=== PATIENT | male | born 1955 ===

== ENCOUNTER 2020-01-21 16:57 | Outpatient (REF) | payer OTHER, SELFPAY | END 2020-01-21 16:58 | disposition home or self-care (01) | LOC: HO.LAB 16:57 | PROVIDERS: Visit Provider Internal Medicine | DX: Z20.828 Contact with and (suspected) exposure to other viral communicable diseases (principal) | CPT/HCPCS: 87635 ==

== ENCOUNTER → 2020-02-06 08:50 | Outpatient (BNVA) | payer OTHER, SELFPAY | PROVIDERS: PCP Internal Medicine; Referring Provider Internal Medicine; Visit Provider Student in an Organized Health Care Education/Training Program | DX: G89.29 Other chronic pain (principal); M54.5 Low back pain | CPT/HCPCS: 99212 ==

== ENCOUNTER 2021-01-08 08:21 | Outpatient (REF) | payer OTHER, SELFPAY ==
[2021-01-08 09:24] LABS: Alanine Aminotransferase 34 U/L (0-40); Albumin Level 4.2 g/dL (3.5-5.0); Alkaline Phosphatase 52 U/L (39-117); Anion Gap 11 (12-20); Aspartate Amino Transferase 25 U/L (5-37); Bilirubin Total 0.9 mg/dL (0.0-1.0); Blood Urea Nitrogen 16 mg/dL (9-16); Calcium 9.3 mg/dL (8.4-10.2); Carbon Dioxide 28 mmol/L (22-29); Chloride 104 mmol/L (96-108); Estimated Glomerular Filt Rate > 60; Glucose Random 188 mg/dL (60-115); Potassium 4.3 mmol/L (3.3-5.1); Sodium 139 mmol/L (135-145); Total Protein 6.7 g/dL (6.5-8.0)
== END 2021-01-08 08:22 | disposition home or self-care (01) ==
LOC: HO.LAB 08:21
PROVIDERS: PCP Student in an Organized Health Care Education/Training Program; Visit Provider Nurse Practitioner Family
DX: G89.29 Other chronic pain (principal); M54.50 Low back pain, unspecified
CPT/HCPCS: 36415; 80053

== ENCOUNTER → 2021-04-27 11:17 | Outpatient (BNVA) | payer OTHER, SELFPAY | PROVIDERS: PCP Internal Medicine; Visit Provider Nurse Practitioner Family | DX: M54.50 Low back pain, unspecified (principal); G89.29 Other chronic pain | CPT/HCPCS: 99212 ==

== ENCOUNTER 2021-05-10 11:21 | Outpatient (REF) | payer OTHER, SELFPAY ==
--- NOTE | ~2021-05-10 | XR_ITS ---
EXAMINATION: XR LUMBOSACRAL SPINE CLINICAL INFORMATION: Chronic lower back pain. COMPARISON: None TECHNIQUE: Three views of the lumbosacral spine. FINDINGS: Mild degenerative changes are present with predominately endplate disease with some mild narrowing at L4-L5 as well as L5-S1. When comparison is made to the 06/08/2016 study, there is some mild progression at L4-L5. XR/XR lumbar spine 2-3V IMPRESSION: Mild degenerative changes as described above.
== END 2021-05-10 11:22 | disposition home or self-care (01) ==
LOC: HO.XRAY 11:21
PROVIDERS: PCP Internal Medicine; Visit Provider Nurse Practitioner Family
DX: G89.29 Other chronic pain (principal); M54.50 Low back pain, unspecified
CPT/HCPCS: 72100

== ENCOUNTER 2021-07-16 12:44 | Emergency (ER) | payer OTHER, SELFPAY ==
--- NOTE | ~2021-07-16 | XR_ITS ---
EXAMINATION: XR FEMUR, RIGHT CLINICAL INFORMATION: Pain post fall COMPARISON: Bilateral hip x-ray from the same day and right hip x-ray July 2016 TECHNIQUE: AP and lateral views of the right femur were obtained. FINDINGS: Bone alignment is normal. No fracture or dislocation is seen. There is mild arthritis at the right hip joint with superior lateral acetabular osteophyte. The joint spaces otherwise normal. The knee joint is normal. Soft tissues are normal. XR/XR femur RT 2V IMPRESSION: No fracture or dislocation.
--- NOTE | ~2021-07-16 | XR_ITS ---
EXAMINATION: LUMBAR SPINE AND SACRUM AND COCCYX X-RAYS CLINICAL INFORMATION: Pain post fall COMPARISON: Previous x-ray of the lumbar spine April 2021 TECHNIQUE: 3 views of the lumbar spine and 3 views of the sacrum and coccyx FINDINGS: Lumbar spine: Bone alignment is normal. No fracture or dislocation is seen. There is degenerative spondylosis at L3-L4 to L5-S1. There is degenerative disc disease at L5-S1. There is lower lumbar spine facet arthritis. The sacrum and coccyx are normal. XR/XR lumbar spine 2-3V IMPRESSION: Degenerative changes. No fracture or dislocation seen.
--- NOTE | ~2021-07-16 | XR_ITS ---
EXAMINATION: LUMBAR SPINE AND SACRUM AND COCCYX X-RAYS CLINICAL INFORMATION: Pain post fall COMPARISON: Previous x-ray of the lumbar spine April 2021 TECHNIQUE: 3 views of the lumbar spine and 3 views of the sacrum and coccyx FINDINGS: Lumbar spine: Bone alignment is normal. No fracture or dislocation is seen. There is degenerative spondylosis at L3-L4 to L5-S1. There is degenerative disc disease at L5-S1. There is lower lumbar spine facet arthritis. The sacrum and coccyx are normal. XR/XR sacrum coccyx min 2V IMPRESSION: Degenerative changes. No fracture or dislocation seen.
--- NOTE | ~2021-07-16 | XR_ITS ---
EXAMINATION: XR BILATERAL HIPS WITH AP PELVIS CLINICAL INFORMATION: Fall COMPARISON: Previous left hip x-ray July 2016 TECHNIQUE: AP view of the pelvis and 2 views of each hip were obtained. FINDINGS: Bone alignment is normal. No fracture or dislocation is seen. There are small superior lateral acetabular osteophytes seen at both hip joints. The hip joints are otherwise normal. Bones of the pelvis are normal. There is faint soft tissue calcification adjacent to the greater trochanter. XR/XR hip BI w PEL1V IMPRESSION: No fracture or dislocation.
[2021-07-16 12:53] VITALS: BP 114/64; PULSE 61; RESP 17; TEMP 36.3; O2SAT 97; BMI 32.6
--- NOTE | 2021-07-16 13:58 | ED_ITS ---
HPI - Extremity Injury (Lower) General Chief Complaint: Extremity Injury, Lower Stated Complaint: Fall t-2 days/hip pain Time Seen by Provider: 07/16/21 13:41 Source: patient Mode of arrival: ambulatory History of Present Illness HPI Narrative: 65-year-old male with a past medical history of hypertension, osteoarthritis, presenting to the ED complaining of right hip/groin, right thigh, and low back pain s/p mechanical trip and fall 2 days ago while going down the stairs at home. Denies symptoms prior to fall. Denies head trauma or LOC, has been ambulatory with pain. Denies numbness, tingling, weakness, urinary incontinence/retention. Admits to taking tramadol without relief MD complaint: hip injury, thigh injury and leg injury Onset (ago): day(s) Related Data Home Medications Medication Instructions Recorded Confirmed docusate sodium 100 mg capsule 100 mg PO DAILY 02/06/20 (Colace) terazosin 2 mg capsule 2 mg PO BEDTIME 02/06/20 Previous Rx's Medication Instructions Recorded montelukast 10 mg tablet 10 mg PO DAILY 90 Days #90 tab 10/26/20 baclofen 10 mg tablet 10 mg PO Q8H #270 tab 01/20/21 tramadol 50 mg tablet 50 mg PO Q8H #90 tab 05/21/21 hydrocodone 5 mg-acetaminophen 325 1 tab PO Q8H PRN 3 Days #5 tab 07/16/21 mg tablet lidocaine 5 % topical patch 1 patch TOPICAL DAILY PRN #30 ea 07/16/21 (Lidoderm) MDD remove after 12 hours naproxen 500 mg tablet 500 mg PO BID PRN 10 Days #20 tab 07/16/21 Allergies Allergy/AdvReac Type Severity Reaction Status Date / Time No Known Allergies Allergy Verified 04/27/21 11:33 [No Known Allergies*] Review of Systems Review of Systems: Constitutional: No Fever, No Chills ENT/Mouth: No Ear Pain, No Nasal Congestion, No sore throat, No Rhinorrhea, No Swallowing Difficulty Cardiovascular: No Chest Pain, No SOB Respiratory: No Cough, No Sputum, No Wheezing Gastrointestinal: No Nausea, No Vomiting, No Diarrhea, No Constipation, No Abdominal pain Genitourinary: No Dysuria, No Urinary Frequency, No Hematuria, No Urinary Incontinence/retention, No Urgency, No Flank Pain Musculoskeletal: + joint pain, No Myalgias, No Joint Swelling Skin: No Skin Lesions, No rash Neuro: No Weakness, No Numbness, No Paresthesias Yes all other systems are reviewed and are negative Neurologic: Denies Sensory deficit (Neuro) [facility] Past Medical History Attestation statement: The following information was validated with the patient. Medical History HTN (hypertension) Low back pain Osteoarthritis Surgical History Hx of shoulder surgery Family History Family History Father Diabetes Mother Cancer Social History Social History Household Members: Spouse Alcohol intake: current Patient Tobacco Use Status: Former Tobacco user Advance Directives: No Advance Directives Information Provided: Yes Sexual orientation: Straight/Heterosexual Gender identity: Male Physical Exam Vital Signs: Vital Signs: Last Vital Signs Temp 97.4 F 07/16/21 12:53 Pulse 61 07/16/21 12:53 Resp 17 07/16/21 12:53 BP 114/64 07/16/21 12:53 Pulse Ox 97 07/16/21 12:53 BMI result Body Mass Index 32.6 Const: General: cooperative and no acute distress Orientation/consciousness: patient oriented x3 Limitations: no limitations HEENT: Head: Yes normal to inspection and Yes atraumatic Ears: hearing grossly normal bilaterally General nose exam: Normal external nose present Face and sinus: Yes normal facial exam Eyes: General: appearance normal, both eyes and all related structures EOM: EOMs intact bilaterally Neck: Other: No midline cervical spinous tenderness Neck: Yes normal visual inspection and Yes no meningeal signs Chest: Chest palpation & inspection: no crepitus and no tenderness Resp: Effort & Inspection: normal respiratory effort and no respiratory distress Cardio: Rate: regular rate Heart sounds: S1 normal heart sound present and S2 normal heart sound present Peripheral pulses: radial pulses present and dorsalis pedis present GI: Inspection: Yes normal to inspection Palpation (GI): Soft to palpation, nontender, no guarding and not rigid Back/Spine/Pelvis: Other: No midline thoracic/lumbar spinous tenderness/step-off or deformity. + right- sided lumbar paraspinal/buttock tenderness Thoracic/Lumbar Spine: thoracic and lumbar spine normal to inspection Skin: Rashes: no rashes Wounds: no wounds Neuro: Other: Ambulating with slow steady gait with cane. No saddle anesthesia. Strength intact throughout General: patient oriented x3, tone normal, moves all extremities and no meningeal signs Motor exam (neuro): 5/5 motor strength present throughout Sensory Exam: No Sensory deficit (Neuro) Extrem: Other: No appreciable right lower extremity deformity, no erythema/ecchymosis. R hip with mild tenderness greater to groin, + right thigh tenderness, compartments soft. Knee/foot nontender. Pain elicited with external rotation of hip. Neurovascular intact distally General: Yes normal to inspection Course Course Course Narrative: X-rays without acute findings. Results discussed with patient including needed follow-up with PCP and worrisome signs and symptoms/strict return precautions, he verbalized understanding and feel safe for discharge home at this time MDM - Extremity Injury (Lower) MDM Narrative Medical decision making narrative: 65-year-old male with a past medical history of hypertension, osteoarthritis, presenting to the ED complaining of right hip/groin, right thigh, and low back pain s/p mechanical trip and fall 2 days ago while going down the stairs at home. On exam vital signs stable, NAD/nontoxic appearing, physical exam as above. Concern for fracture vs MSK pain/strain vs dislocation. Low concern for cauda equina/cord compression Differential Diagnosis Differential diagnosis: Likely fracture of femur and fracture of hip Medical Records Attestation: I reviewed the patient's medical records. Lab Data Attestation: I reviewed the patient's lab results. Discharge Plan Discharge Clinical Impression: Low back pain, Contusion Patient Disposition: Home, Self-Care Instructions: Acute Low Back Pain (ED), Bone Bruise (ED) Additional Instructions: Your x-rays do not show any fractures or dislocations, just age related changes. Continue taking her prescribed baclofen which is a muscle relaxer, take at night as it makes you drowsy, do not drive, drink alcohol, or operate machinery while taking it Naproxen as an anti-inflammatory / pain medication, take with food Lidoderm patches are numbing patches, apply to painful area [place] is an opiate pain medication, take only when pain is severe for the next 3 days. Do not take both [place] and tramadol as they are both opiates. Be aware [place] has Tylenol mixed in do not exceed 4 g in 1 day In addition take Tylenol at home If symptoms persist or worsen, pain becomes unbearable, you developed urinary retention or incontinence, or weakness return to the ED Prescriptions: New naproxen 500 mg tablet 500 mg PO BID PRN (Reason: pain) 10 Days Qty: 20 0RF lidocaine [Lidoderm] 5 % adhesive patch,medicated 1 patch topical DAILY MDD remove after 12 hours PRN (Reason: pain) Qty: 30 0RF Rx Instructions: leave on most painful area for up to 12 hrs hydrocodone-acetaminophen 5-325 mg tablet 1 tab PO Q8H PRN (Reason: pain, severe) 3 Days Qty: 5 0RF No Action montelukast 10 mg tablet 10 mg PO DAILY 90 Days Qty: 90 3RF baclofen 10 mg tablet 10 mg PO Q8H Qty: 270 1RF tramadol 50 mg tablet 50 mg PO Q8H Qty: 90 3RF terazosin 2 mg capsule 2 mg PO BEDTIME 0RF docusate sodium [Colace] 100 mg capsule 100 mg PO DAILY 0RF Referrals: Magali Kwok MD [Primary Care Provider] - 2 days Interventions: ED Discharge Assessment Last Done: 07/16/21 15:04 Discharge Date/Time: 07/16/21 15:05
[2021-07-16] MEDS: Acetaminophen 325 MG TABLET 650 MG PO (14:20)
[2021-07-16] MEDS: Cyclobenzaprine HCl 10 MG TABLET PO (14:20)
--- NOTE | 2021-07-16 14:39 | PC.NURSE ---
PT AMBULATED WITH CANE TO BATHROOM AND BACK TO BED SLOWLY, STEADY GAIT.
== END 2021-07-16 15:05 | disposition home or self-care (01) ==
PROVIDERS: Emergency Provider Emergency Medicine Emergency Medical Services; PCP Internal Medicine
DX: S30.1XXA Contusion of abdominal wall, initial encounter (principal); M54.50 Low back pain, unspecified; M25.551 Pain in right hip; M25.552 Pain in left hip; W10.9XXA Fall (on) (from) unspecified stairs and steps, initial encounter; Y93.9 Activity, unspecified; Y92.9 Unspecified place or not applicable; Y99.9 Unspecified external cause status; Z87.891 Personal history of nicotine dependence; Z79.899 Other long term (current) drug therapy
CPT/HCPCS: 72100; 72220; 73521; 73552; 99283

== ENCOUNTER 2021-07-17 00:37 | Emergency (ER) | payer OTHER, SELFPAY ==
--- NOTE | ~2021-07-17 | CT_ITS ---
EXAMINATION: CT PELVIS WITHOUT CONTRAST CLINICAL INFORMATION: Lumbar pain. Pelvic pain. Fall. COMPARISON: 07/16/2021 TECHNIQUE: Helical scanning was performed with submillimeter collimation through the pelvis. Sagittal and coronal multiplanar 2-D reconstructions were obtained. This CT examination was performed using dose optimization techniques as appropriate, variously including the following: *Automated exposure control *Adjustment of mA and/or kV according to patient size (this includes techniques or standardized protocols for targeted exams where dose is matched to indication/reason for exam; i.e. extremities or head) *Use of iterative reconstruction technique DLP: 506 mGy-cm FINDINGS: PELVIS: The intrapelvic structures show no acute abnormality. No bowel obstruction. Normal appendix. Normally distended bladder. The prostate and seminal vesicles are unremarkable. No lymphadenopathy. No abdominal wall hernia. OSSEOUS STRUCTURES: No acute fractures. The femoral heads are well-seated within their acetabula. Mild degenerative change of both hips with osteophyte formation. Intact sacrum. Symmetric sacroiliac joints. Degenerative changes noted at the lower lumbar spine. CT/CT pelvis wo con IMPRESSION: No fracture or malalignment. Degenerative changes.
[2021-07-17 01:03] VITALS: BP 120/47; PULSE 60; RESP 20; TEMP 36.5; O2SAT 97; BMI 32.6
--- NOTE | 2021-07-17 01:41 | ED_ITS ---
HPI - Back Pain/Injury General Chief Complaint: Back Pain/Injury Stated Complaint: hip/lower back pain, was here 07/16 Time Seen by Provider: 07/17/21 01:21 Source: patient Mode of arrival: ambulatory Limitations: no limitations History of Present Illness HPI Narrative: Patient comes to the emergency room complaining of lumbar pain and pelvic pain after a fall. Patient was seen here yesterday, x-rays were negative. Patient states that the pain is much worse. Patient is barely able to stand up and walk due to the pain. Patient denies any urinary/fecal incontinence or retention. Patient states that both of his buttocks hurt as well. Patient denies any other injuries. States that he was walking down the stairs 2 days ago and he fell , landing on his buttocks Related Data Home Medications Medication Instructions Recorded Confirmed docusate sodium 100 mg capsule 100 mg PO DAILY 02/06/20 (Colace) terazosin 2 mg capsule 2 mg PO BEDTIME 02/06/20 Previous Rx's Medication Instructions Recorded montelukast 10 mg tablet 10 mg PO DAILY 90 Days #90 tab 10/26/20 baclofen 10 mg tablet 10 mg PO Q8H #270 tab 01/20/21 tramadol 50 mg tablet 50 mg PO Q8H #90 tab 05/21/21 hydrocodone 5 mg-acetaminophen 325 1 tab PO Q8H PRN 3 Days #5 tab 07/16/21 mg tablet lidocaine 5 % topical patch 1 patch TOPICAL DAILY PRN #30 ea 07/16/21 (Lidoderm) MDD remove after 12 hours naproxen 500 mg tablet 500 mg PO BID PRN 10 Days #20 tab 07/16/21 oxycodone 5 mg tablet 5 mg PO BID PRN #7 tab 07/17/21 Allergies Allergy/AdvReac Type Severity Reaction Status Date / Time No Known Allergies Allergy Verified 07/17/21 01:07 [No Known Allergies*] Review of Systems Review of Systems: Constitutional : No Weight loss, No Fever, No Chills, No Night Sweats, No Fatigue, No Malaise ENT/Mouth : No Hearing loss, No Ear Pain, No Nasal Congestion, No Sinus Pain, No Hoarseness, No sore throat, No Rhinorrhea, No Swallowing Difficulty Eyes: No Eye Pain, No Swelling, No Redness, No Foreign Body, No Discharge, No Vision Changes Cardiovascular : No Chest Pain, No SOB, No Dyspnea on Exertion, No Orthopnea, No Edema, No Palpitations Respiratory : No Cough, No Sputum, No Wheezing, No Smoke Exposure, No Dyspnea Gastrointestinal : No Nausea, No Vomiting, No Diarrhea, No Constipation, No abdominal Pain, No Hematochezia, No Melena Genitourinary : no irregular bleeding, No Dysuria, No Urinary Frequency, No Hematuria, No Urinary Incontinence, No Urgency, No Flank Pain, No Urinary Flow Changes, No Hesitancy Musculoskeletal : Complaining of pelvic, buttocks pain and posterior upper thi ghs pain bilaterally, complaining of lumbar pain as well. Skin : No Skin Lesions, No rash Neuro : No Weakness, No Numbness, No Paresthesias, No Loss of Consciousness, No Dizziness, No Headache Psych : No Anxiety/Panic, No Depression, No SI/HI/AH/VH, No Social Issues, Heme/Lymph: No Bruising, No Bleeding,No Lymphadenopathy Endocrine : No Polyuria, No Polydipsia, No Temperature Intolerance [facility] Past Medical History Medical History HTN (hypertension) Low back pain Osteoarthritis Surgical History Hx of shoulder surgery Family History Family History Father Diabetes Mother Cancer Social History Social History Household Members: Spouse Alcohol intake: current Patient Tobacco Use Status: Former Tobacco user Advance Directives: No Advance Directives Information Provided: Yes Sexual orientation: Straight/Heterosexual Gender identity: Male Physical Exam Vital Signs: Vital Signs: Last Vital Signs Temp 97.7 F 07/17/21 01:03 Pulse 60 07/17/21 01:03 Resp 20 07/17/21 01:03 BP 120/47 L 07/17/21 01:03 Pulse Ox 97 07/17/21 01:03 BMI result Body Mass Index 32.6 Const: Other: Appearance: Alert. Oriented X3. No acute distress. Eyes: Pupils equal, round and reactive to light. ENT: Pharynx normal. Neck: Normal inspection. Neck supple. No lymph nodes noted. No crepitus CVS: Normal heart rate and rhythm. Pulses normal. Normal S1 and S2 Respiratory: No respiratory distress. Breath sounds normal. No Wheezing. No rales Abdomen: Soft and nontender. No rigidity. No distention. Back: Pain to palpation in lumbar area, mild pain to palpation over the buttocks. Patient is uncomfortable sitting in the chair, also very uncomfortable trying to stand up due to the pain. Skin: Skin warm and dry. Normal skin color. Normal skin turgor. Extremities: No lower extremity edema. No Lacerations. No Rash Neuro: Oriented X 3. No motor deficit. No sensory deficit. Moving all extremities. No slurred speech. CN 2 through 12 grossly intact Psych: calm, cooperative, normal affect Course Course Course Narrative: Patient already had x-rays done, negative, we will go ahead and get a CT scan to rule out fractures. Cauda equina syndrome not suspected at this time. Patient received 1 dose of IM morphine 4 mg, patient feeling much better. CT scan shows no acute findings. Patient will follow up with his primary care physician. MDM - Back Pain/Injury Imaging Data Pelvis CT scan: Radiologist's impression: FINDINGS: PELVIS: The intrapelvic structures show no acute abnormality. No bowel obstruction. Normal appendix. Normally distended bladder. The prostate and seminal vesicles are unremarkable. No lymphadenopathy. No abdominal wall hernia.? OSSEOUS STRUCTURES: No acute fractures. The femoral heads are well-seated within their acetabula. Mild degenerative change of both hips with osteophyte formation. Intact sacrum. Symmetric sacroiliac joints. Degenerative changes noted at the lower lumbar spine.? CT/CT pelvis wo con IMPRESSION: No fracture or malalignment. Degenerative changes.? Discharge Plan Discharge Clinical Impression: Low back pain Patient Disposition: Home, Self-Care Instructions: Acute Low Back Pain (ED) Additional Instructions: Please follow-up with your primary care physician tomorrow. If you have any worsening or new symptoms, please return to the emergency room or call 911 Prescriptions: New oxycodone 5 mg tablet 5 mg PO BID PRN (Reason: pain) Qty: 7 0RF No Action montelukast 10 mg tablet 10 mg PO DAILY 90 Days Qty: 90 3RF baclofen 10 mg tablet 10 mg PO Q8H Qty: 270 1RF tramadol 50 mg tablet 50 mg PO Q8H Qty: 90 3RF naproxen 500 mg tablet 500 mg PO BID PRN (Reason: pain) 10 Days Qty: 20 0RF lidocaine [Lidoderm] 5 % adhesive patch,medicated 1 patch topical DAILY MDD remove after 12 hours PRN (Reason: pain) Qty: 30 0RF Rx Instructions: leave on most painful area for up to 12 hrs hydrocodone-acetaminophen 5-325 mg tablet 1 tab PO Q8H PRN (Reason: pain, severe) 3 Days Qty: 5 0RF terazosin 2 mg capsule 2 mg PO BEDTIME 0RF docusate sodium [Colace] 100 mg capsule 100 mg PO DAILY 0RF
[2021-07-17] MEDS: Morphine Sulfate 4 MG/ML CARTRIDGE IM (02:17)
[2021-07-17 03:03] VITALS: BP 106/53; PULSE 51; RESP 16; TEMP 36.9; O2SAT 97
== END 2021-07-17 03:20 | disposition home or self-care (01) ==
PROVIDERS: Emergency Provider Emergency Medicine
DX: M54.50 Low back pain, unspecified (principal); R10.2 Pelvic and perineal pain; Z87.891 Personal history of nicotine dependence
CPT/HCPCS: 72192; 96372; 99283; 99284; J2270

== ENCOUNTER → 2022-04-27 09:22 | Outpatient (BNVA) | payer OTHER, SELFPAY | PROVIDERS: PCP Family Medicine; Visit Provider Nurse Practitioner Family | DX: M47.816 Spondylosis without myelopathy or radiculopathy, lumbar region (principal) | CPT/HCPCS: 99212 ==

== ENCOUNTER 2022-05-13 08:52 | Outpatient (REF) | payer OTHER, SELFPAY ==
[2022-05-13 09:14] LABS: MANUAL DIFF FLAG NO
[2022-05-13 09:31] LABS: Basophils Percent Auto 0.6 % (0-2); Eosinophils Absolute Auto 0.1 X10*3/uL (0.0-0.4); Eosinophils Percent Auto 2.4 % (0-4); Hematocrit 44.5 % (42.0-52.0); Hemoglobin 15.3 g/dl (14.0-18.0); Imm Gran Abs Auto 0.02 X10*3/uL (0.00-0.03); Imm Gran Pct Auto 0.4 % (0.0-0.4); Lymphocytes Absolute Auto 1.2 X10*3/uL (1.2-4.9); Lymphocytes Percent Auto 23.5 % (20-40); Mean Corpuscular HGB Conc 34.4 g/dl (31.0-36.0); Mean Corpuscular Hemoglobin 30.1 pg (27.0-33.0); Mean Corpuscular Volume 87.6 fL (80.0-98.0); Mean Platelet Volume 8.8 fL (9.4-12.4); Monocytes Absolute Auto 0.7 X10*3/uL (0.1-1.2); Monocytes Percent Auto 13.8 % (2-11); Neutrophils Percent Auto 59.3 % (45-73); Platelet Count 191 X10*3/uL (160-400); Red Blood Count 5.08 X10*6/uL (4.60-5.80); Red Cell Distribution Width 12.3 % (11.0-16.0); White Blood Count 5.1 X10*3/uL (4.8-10.8)
[2022-05-13 09:47] LABS: Amphetamine Screen Urine Not Detected (Not Detect); Barbiturates, Urine Not Detected (Not Detect); Benzodiazepines Screen Urine Not Detected (Not Detect); Cannabinoid Screen Urine Not Detected (Not Detect); Cocaine Screen Urine Not Detected (Not Detect); Fentanyl, urine Not Detected (Not Detect); Opiate Screen Urine Not Detected (Not Detect); Phencyclidine Screen Urine Not Detected (Not Detect)
[2022-05-13 10:17] LABS: Creatinine Urine 206.22 mg/dL; Microalbum/Creatinine Ratio Ur 7.7 ug/mg cr
[2022-05-13 10:19] LABS: Alanine Aminotransferase 33 U/L (0-40); Aspartate Amino Transferase 27 U/L (5-37)
[2022-05-13 10:23] LABS: Erythrocyte Sedimentation Rate 7 MM/HR (0-15)
[2022-05-13 10:31] LABS: Alanine Aminotransferase 37 U/L (0-40); Albumin Level 4.1 g/dL (3.5-5.0); Alkaline Phosphatase 54 U/L (39-117); Anion Gap 11 (12-20); Aspartate Amino Transferase 26 U/L (5-37); Bilirubin Total 1.4 mg/dL (0.0-1.0); Blood Urea Nitrogen 21 mg/dL (9-16); C Reactive Protein 0.39 mg/dL (< or = 0.50); Calcium 9.1 mg/dL (8.4-10.2); Carbon Dioxide 28 mmol/L (22-29); Chloride 106 mmol/L (96-108); Cholesterol 182 mg/dL; Estimated Glomerular Filt Rate > 60; Glucose Fasting 117 mg/dL (60-99); HDL Cholesterol 29 mg/dL; LDL Cholesterol Calculated 121 mg/dl; Potassium 4.4 mmol/L (3.3-5.1); Sodium 141 mmol/L (135-145); Total Protein 6.5 g/dL (6.5-8.0); Triglycerides 161 mg/dL
[2022-05-13 10:52] LABS: Prostate Specific Antigen Scr 9.46 ng/mL (<0.05-4.0); TSH reflex Free T4 1.56 uIU/mL (0.32-4.0)
[2022-05-13 13:40] LABS: Appearance Urine Clear; Color Urine Yellow; Glucose Urine UA Negative (Negative); Leukocyte Esterase Urine Trace (Negative); Nitrite Urine Negative (Negative); Specific Gravity - Urine 1.025 (1.005-1.025); UMIC TRIGGER UA YES; Urine Blood Negative (Negative); Urine Ketones Negative (Negative); Urine Protein Negative (Neg-Trace)
[2022-05-13 13:52] LABS: Bacteria Urine None Seen (None Seen); Hyaline Casts Urine 0-2 /LPF (0-2); RBC Urine 0-2 /HPF (0-2); Squamous Epithelial Cell Urine 0-2 /HPF (0-2); WBC Urine 0-5 /HPF (0-5)
== END 2022-05-13 08:53 | disposition home or self-care (01) ==
LOC: HO.LAB 08:52
PROVIDERS: Absent Provider Nurse Practitioner Family; PCP Family Medicine; Visit Provider Family Medicine
DX: Z00.00 Encounter for general adult medical examination without abnormal findings (principal); Z12.5 Encounter for screening for malignant neoplasm of prostate; M25.50 Pain in unspecified joint; I10 Essential (primary) hypertension; Z79.899 Other long term (current) drug therapy
CPT/HCPCS: 36415; 80053; 80061; 80307; 80373; 81001; 81003; 82043; 84153; 84443; 84450; 84460; 85025; 85652; 86140

== ENCOUNTER → 2022-06-01 09:47 | Outpatient (BNVA) | payer OTHER, SELFPAY | PROVIDERS: PCP Family Medicine; Visit Provider Physician Assistant | DX: Z01.818 Encounter for other preprocedural examination (principal); Z80.0 Family history of malignant neoplasm of digestive organs | CPT/HCPCS: 99202 ==

== ENCOUNTER → 2022-06-06 10:47 | Outpatient (BNVA) | payer OTHER, SELFPAY | PROVIDERS: PCP Family Medicine; Visit Provider Urology | DX: N40.1 Benign prostatic hyperplasia with lower urinary tract symptoms (principal); N13.8 Other obstructive and reflux uropathy; R97.20 Elevated prostate specific antigen [PSA] | CPT/HCPCS: 51798; 99202 ==

== ENCOUNTER 2022-08-25 07:24 | Outpatient (REF) | payer OTHER, SELFPAY ==
[2022-08-25 07:50] VITALS: BP 132/61; PULSE 50; RESP 16; TEMP 36.3; O2SAT 96
[2022-08-25 07:51] VITALS: BMI 33.2
[2022-08-25 08:32] VITALS: BP 157/86; PULSE 50; RESP 16; O2SAT 98
--- NOTE | 2022-08-25 09:06 | W.PM.OPN ---
Operative Note Operative Note Date of Service: 08/25/22 Narrative: PreOperative Diagnosis:? ? Elevated PSA Post Operative Diagnosis:??Elevated PSA Procedure:?1. Transrectal ultrasound guided biopsy of the prostate 12 core 2. Transrectal ultrasound measurement of prostate 3. Transrectal ultrasound guided pudendal nerve block Surgeon:?Dr Veronica Alfredo Anesthesia:? Local Indications for procedure: Elevated PSA Procedure: Preoperative antibiotics confirmed. After informed consent was verified the patient was placed on the procedure table in left lateral position. Patient identity confirmed. Safety pause time-out performed. Digital rectal exam performed to dilate rectal sphincter, iodine mixed with lubricant jelly 30 cc placed per rectum. Ultrasound probe was placed per rectum. The prostate was visualized. The prostate was measured height 4.41 cm, width 4.90 cm, length 5.78 cm with a volume of 65.4 mL. An ultrasound guided pudendal nerve block was performed using 10 cc of 1% lidocaine. A 12 core biopsy was performed from the left base, left mid, left apex and right base, mid, apex 2 biopsies from each section. The ultrasound probe was removed and digital palpation of the prostate for 1-2 minutes for hemostasis was performed. The patient tolerated the procedure well. Complications: None
== END 2022-08-25 07:25 | disposition home or self-care (01) ==
LOC: HO.MS 07:24
PROVIDERS: PCP Family Medicine; Visit Provider Urology
PROC: (CPT 55700; principal; 2022-08-25 08:00)
DX: C61 Malignant neoplasm of prostate (principal)
CPT/HCPCS: 55700; 76942; 88305

== ENCOUNTER → 2022-09-15 08:57 | Outpatient (BNVA) | payer OTHER, SELFPAY | PROVIDERS: PCP Family Medicine; Visit Provider Urology | DX: C61 Malignant neoplasm of prostate (principal) | CPT/HCPCS: 99212 ==

== ENCOUNTER 2022-12-12 13:54 | Outpatient (AMB) | payer OTHER, SELFPAY ==
--- NOTE | 2022-12-12 14:01 | MHC.OFFVIS ---
Intake Intake Visit Reasons: 3m/CT pet Intake Note: Patient presents today for a follow-up on CT PET Results: CT PET was denied. Meds- Tamsulosin Allergies to Antibiotic- No Known Allergies Blood Thinner- None Allergies No Known Allergies [No Known Allergies*] Allergy (Verified 12/12/22 14:17) HPI HPI Comments History of Present Illness Details Solomon is a 66-year-old male who presents today to the office for a follow-up. 12/12/2022? He is followed today for PET results. Certified Brazilian speaker was present during the visit. He was last seen by me on 09/15/2022 for adenocarcinoma of the prostate. CT Pet scan and polaris was ordered during that time. Insurance denied authorization for PET CT. I discussed results of Polaris molecular score is 4.0. Discussed options to include neoadjuvant hormonal therapy. He wants to consider radiation oncology, vs radical prostatectomy. I will start casodex 50 mg daily, and order firmagon. Referral to radiation oncology, Stacia Gomes and surgical urology oncology Dr. Sauceda. 12/12/2022: Evaluation today?UA? leukocytes: negative; blood: negative. Review of charts: Last visit: 09/15/22--? Certified painter apprentice was present during the visit.? The patient was evaluated initially on 06/06/22 for elevated PSA.? PSA on 05/13/2022 was 9.46 ng/mL. He is S/P prostate biopsy on 08/25/22.? I reviewed pathology results with him? I discussed that Bryson score notes that the biopsy samples were in the intermittent range, I discussed sending the biopsy for Gene analysis, Prol[facility] lab and we will refer him to radiation oncology for further discussion on treatment options.?? I did discuss that treatmenincludes active surveillance which we generally recommend for low-grade cancer and surgical removal was also discussed.? Prostate biopsy results reviewed?08/25/22-- significant for prostatic adenocarcinoma on the left base medial apex of highest Bryson score 3+4=7. Prostate volume was estimated to be 65.4 mL.? Evaluation today-- Blood:? 80 Arturo/uL, leukocytes: negative. 12/12/2022: Plan: Neoadjuvant hormonal therapy, will refer to the radiation oncologist, and surgical consultation for radical prostatectomy. bone scan. [facility] Medical History Lumbar spondylosis Low back pain Osteoarthritis HTN (hypertension) Surgical History H/O prostate biopsy Hx of shoulder surgery Family History Father Diabetes Mother Cancer Social History Household Members: Spouse Housing: House Alcohol intake: current Patient Tobacco Use Status: Former Tobacco user e-Cigarette/Vaping Use: Never Used Second Hand Smoke Exposure: No Current occupational status: retired Sexual orientation: Straight/Heterosexual Gender identity: Male Cognitive needs: No Hearing needs: No Vision needs: No Review of Systems Const Reports no additional complaints Eyes Reports no additional complaints ENT Denies neck pain Card Denies leg edema Resp Denies cough GI Denies constipation Musc Reports no additional complaints and Denies neck pain Skin/Breast Denies rash and Denies unusual bruising Neuro Reports no additional complaints Psych Reports no additional complaints Endo Reports no additional complaints Omid/Lymph Reports no additional complaints Aller/Immun Reports no additional complaints Results AMB Urinalysis, Automated UA Leukoctes 0 Brian/uL Last Edit by KATE Conrad on 12/12/22 14:21 UA Nitrite Negative Last Edit by KATE Conrad on 12/12/22 14:21 UA Urobilinogen 0 mg/dL Last Edit by KATE Conrad on 12/12/22 14:21 UA Protein 0 mg/dL Last Edit by KATE Conrad on 12/12/22 14:21 UA pH 6.0 Last Edit by KATE Conrad on 12/12/22 14:21 UA Blood 0 Arturo/uL Last Edit by KATE Conrad on 12/12/22 14:21 UA Specific [place] 1.020 Last Edit by KATE Conrad on 12/12/22 14:21 UA Ketone Negative Last Edit by KATE Conrad on 12/12/22 14:21 UA Bilirubin 0 mg/dL Last Edit by KATE Conrad on 12/12/22 14:21 UA Glucose 1000 mg/dL Last Edit by KATE Conrad on 12/12/22 14:21 3+ Bri Chu 12/12/22 14:21 Results Reviewed Results Reviewed: Laboratory Last Values Urine pH (Auto) 6.0 12/12/22 14:19 Specific [place] (Auto) 1.020 12/12/22 14:19 Urine Protein (Auto) 0 mg/dL 12/12/22 14:19 Glucose (UA)(Auto) 1000 mg/dL 12/12/22 14:19 Urine Ketones (Auto) Negative 12/12/22 14:19 Urine Blood (Auto) 0 Arturo/uL 12/12/22 14:19 Urine Nitrite (Auto) Negative 12/12/22 14:19 Urine Bilirubin (Auto) 0 mg/dL 12/12/22 14:19 Urine Urobilinogen (Auto) 0 mg/dL 12/12/22 14:19 Leukocyte Esterase (Auto) 0 Brian/uL 12/12/22 14:19 Assessment & Plan Assessment & Plan (1) Adenocarcinoma of prostate: Code(s): C61 - Malignant neoplasm of prostate Plan Neoadjuvant hormonal therapy, will refer to the radiation oncologist, and surgical consultation for radical prostatectomy. bone scan. Orders: Orders NM bone scan whole body 12/12/22 C61 - Malignant neoplasm of prostate AMB Urinalysis Automated 12/12/22 Z13.9 - Encounter for screening, unspecified Referrals Radiation Oncology Referral C61 - Malignant neoplasm of prostate Medications: New bicalutamide (Casodex) 50 mg PO DAILY 90 tabs 3RF Patient Instructions: The patient had an opportunity to ask questions regarding treatment plan. All questions were answered. Imaging, Laboratory studies and physical exam results were discussed and reviewed in detail. No major barriers to understanding were identified. The patient expressed understanding and agreement with the above treatment plan.? ? ? The patient is aware they should contact our office by phone for worsening of their current condition or the appearance of new symptoms. Compliance is encouraged with any medications and followup testing that is ordered.? ? ? It is a privilege to be allowed the opportunity to participate in the urologic care of your patient. If you have any questions or concerns regarding treatment for the above conditions please do not hesitate to contact me. The office telephone contact is [phone].? ? ? This note is constructed in part using voice recognition software. While every effort has been made to ensure accuracy tire mold engraver errors may have been included.? ? ? Yours sincerely,? ? ? Veronica Alfredo MD? ? Coding Level of Care Code Est Pt Level 4 (39485) Diagnoses Adenocarcinoma of prostate C61 Time Spent (min) 29
== END 2022-12-12 15:01 | disposition home or self-care (01) ==
PROVIDERS: PCP Family Medicine; Visit Provider Urology
DX: C61 Malignant neoplasm of prostate (principal)
CPT/HCPCS: 99214

== ENCOUNTER → 2022-12-12 13:54 | Outpatient (BNVA) | payer OTHER, SELFPAY | PROVIDERS: PCP Family Medicine; Visit Provider Urology | DX: C61 Malignant neoplasm of prostate (principal) | CPT/HCPCS: 81003; 99212 ==

== ENCOUNTER → 2022-12-29 10:41 | Outpatient (REF) | payer OTHER, SELFPAY | LOC: HO.NUCMED 10:41 | PROVIDERS: PCP Family Medicine; Visit Provider Urology | DX: C61 Malignant neoplasm of prostate (principal) | CPT/HCPCS: 78306; A9503 ==

== ENCOUNTER → 2023-01-09 08:11 | Outpatient (BNVA) | payer OTHER, SELFPAY | PROVIDERS: PCP Family Medicine; Visit Provider Urology ==

== ENCOUNTER 2023-01-16 08:50 | Outpatient (AMB) | payer OTHER, SELFPAY ==
--- NOTE | 2023-01-16 09:46 | MHC.OFFVIS ---
Intake Vital Signs 01/16/23 09:47 Height 5 ft 7 in Weight 199 lb 11.821 oz BMI 31.3 BP 112/70 Blood Pressure Location Rt brachial Position Sitting Pulse 48 L Pulse Source Pulse Oximeter Temp 97.3 F Temp Source Skin Pulse Oximetry (%) 96 Oxygen Delivery Method Room Air Intake Visit Reasons: osteoarthritis Intake Note: Patient presents today for OA follow up. Slitter Cut Off Operator Required: Yes Slitter Cut Off Operator Language: Web Site Designer Name: Dandy [id number] Information Interpreted: clinical only Accompanied by: Self / Same As Patient Allergies No Known Allergies [No Known Allergies*] Allergy (Verified 01/16/23 09:49) Medication List - Last Reconciled 01/16/23 by Rufino Connell MD baclofen 10 mg PO Q8H bicalutamide (Casodex) 50 mg PO DAILY bisacodyl (Dulcolax (bisacodyl)) 10 mg (2 x 5 mg) PO ONCE 1 day citalopram 20 mg PO DAILY 30 days montelukast 10 mg PO DAILY 90 days polyethylene glycol 3350 (Miralax) 238 grams PO ONCE 1 day tamsulosin 0.4 mg PO QPM tramadol 50 mg PO Q8H PRN HPI HPI Comments History of Present Illness Details The patient returns for evaluation of his osteoarthritis and treatment with tramadol. The visit is facilitated through the use of the iPad translating service. He had last seen Lisbeth about 8 months ago. He has osteoarthritis involving the hips, LS spine, and hands. Most of the problem seems to be in the LS spine. He finds the tramadol helpful and says it does not cause any sedation. This summer he was diagnosed with prostate cancer. The treatment plan has not been formulated yet. He has an upcoming visit with radiation oncology. ON LICENSE OF [facility] Medical History (Updated 01/16/23 @ 18:57 by Rufino Connell MD) Lumbar spondylosis Low back pain Osteoarthritis HTN (hypertension) Surgical History H/O prostate biopsy Hx of shoulder surgery Family History Father Diabetes Mother Cancer Social History Household Members: Spouse Housing: House Alcohol intake: current Patient Tobacco Use Status: Former Tobacco user e-Cigarette/Vaping Use: Never Used Second Hand Smoke Exposure: No Current occupational status: retired Sexual orientation: Straight/Heterosexual Gender identity: Male Cognitive needs: No Hearing needs: No Vision needs: No Review of Systems Const Details: Negative for appetite change, weight change, fever, chills, malaise and fatigue Eyes Details: Negative for vision change, dry eyes,headaches and dizziness Neuro Details: Negative for epilepsy, palsy, stroke, changes in speech, tingling and weakness Endo Details: Negative for polyuria and polydypsia Omid/Lymph Details: Negative for excessive bruising or bleeding. Physical Exam Vital Signs: Last Vital Signs Temp 97.3 F 01/16/23 09:47 Pulse 48 L 01/16/23 09:47 BP 112/70 01/16/23 09:47 Pulse Ox 96 01/16/23 09:47 Oxygen Delivery Method Room Air 01/16/23 09:47 BMI result Body Mass Index 31.3 APPEARANCE: Patient in no acute distress EXTREMITIES: No edema, no calf tenderness, normal peripheral pulses. JOINT EXAM: ??Cervical Spine:.? Full range of motion without pain; no tenderness. Thoracic Spine:? No scoliosis.? No tenderness on palpation. Lumbar Spine:? Alignment normal.? Limited flexion with pain over the lumbar spine. Tenderness to palpation of bilateral posterior buttocks. Occiput to wall test normal. Hands:?LEFT: Normal pain-free range of motion without tenderness, swelling, increased warmth or erythema. Able to make a full fist and has a good natural gas treating unit operator strength. Heberden's node digits IP joint and DIP 2, 3 and 4. Slight bony enlargement without tenderness at the thumb CMC joint. RIGHT: Normal pain-free range of motion without tenderness, swelling, increased warmth or erythema. Able to make a full fist and has a good natural gas treating unit operator strength. Slight bony enlargement without tenderness at the thumb CMC joint. Nontender Heberden's node digits IP joint and DIP 2, 3 and 4 Wrists:? Normal pain-free range of motion without tenderness, swelling, increased warmth or erythema. Elbows: Normal pain-free range of motion without tenderness, swelling, increased warmth or erythema. Shoulders:? Full range of motion without pain. No tenderness, weakness, swelling, increased warmth or erythema. Hips: LEFT: Full range of motion with mild lumbar and groin pain reported with the extremes of internal or external rotation. RIGHT: Full range of motion with mild lumbar pain and buttock pain with extremes of internal and external rotation. No groin pain with motion. Hip bursa:.? No tenderness. Knees:?? Normal pain-free range of motion with slight patellofemoral crepitus but no effusion, tenderness, swelling, increased warmth or erythema.? There is no effusion or crepitation Ankles:? Normal pain-free range of motion without tenderness, swelling, increased warmth or erythema. Feet: Normal pain-free range of motion with slight bony enlargement and mild tenderness at the 1st MTP bilaterally. No soft tissue swelling, increased warmth or erythema. Assessment & Plan Assessment & Plan (1) Osteoarthritis of hands, bilateral: Code(s): M19.041 - Primary osteoarthritis, right hand; M19.042 - Primary osteoarthritis, left hand (2) Medication monitoring encounter: Comment: Tramadol pain contract updated 02/24/2023 Code(s): Z51.81 - Encounter for therapeutic drug level monitoring (3) Lumbar spondylosis: Code(s): M47.816 - Spondylosis without myelopathy or radiculopathy, lumbar region Plan Osteoarthritis involving the lower back, hips, hands and feet. Most problematic for him has been the lower back pain which seems to be helped with the use of the tramadol. We did review that it was potentially sedating. I suggested maybe he could cut back a bit on the daytime use and substitute a Tylenol for one of the tramadol 50 mg. The Mass Pat was reviewed. He seems to be taking the medicine as directed. He will continue to get the prescription of 4 tablets per day. Follow-up in 6 months is recommended. Coding Level of Care Code Est Pt Level 3 (43768) Diagnoses Osteoarthritis of hands, bilateral M19.041; M19.042 Medication monitoring encounter Z51.81 Lumbar spondylosis M47.816
[2023-01-16 09:47] VITALS: BP 112/70; PULSE 48; TEMP 36.3; O2SAT 96; BMI 31.3
== END 2023-01-16 10:15 | disposition home or self-care (01) ==
PROVIDERS: PCP Family Medicine; Visit Provider Internal Medicine Rheumatology
DX: M19.041 Primary osteoarthritis, right hand (principal); M19.042 Primary osteoarthritis, left hand; Z51.81 Encounter for therapeutic drug level monitoring; M47.816 Spondylosis without myelopathy or radiculopathy, lumbar region
CPT/HCPCS: 99213

== ENCOUNTER → 2023-01-16 08:50 | Outpatient (BNVA) | payer OTHER, SELFPAY | PROVIDERS: PCP Family Medicine; Visit Provider Internal Medicine Rheumatology | DX: M47.816 Spondylosis without myelopathy or radiculopathy, lumbar region (principal); M19.041 Primary osteoarthritis, right hand; M19.042 Primary osteoarthritis, left hand; Z51.81 Encounter for therapeutic drug level monitoring | CPT/HCPCS: 99212 ==

== ENCOUNTER 2023-07-07 08:29 | Outpatient (AMB) | payer OTHER, SELFPAY ==
--- NOTE | 2023-07-07 08:37 | A.OFFVIS_ITS ---
Intake Vital Signs 07/07/23 08:47 Height 5 ft 7 in Weight 215 lb 6.266 oz BMI 33.7 BP 130/70 Blood Pressure Location Rt brachial Position Sitting Pulse 66 Pulse Source Pulse Oximeter Pulse Oximetry (%) 97 Oxygen Delivery Method Room Air Intake Visit Reasons: oa on tramadol with antisqueak worker Intake Note: Patient last seen 01/16/[address] Connell, presents today for follow up. c/o catalino hip pain, catalino hand swelling, right shoulder pain Auto Radiator Specialist Required: Yes Auto Radiator Specialist Language: Liner Machine Operator Helper Name: CHUCKY Felicia Kerns Information Interpreted: clinical only Allergies No Known Allergies [No Known Allergies*] Allergy (Verified 07/07/23 08:48) HPI HPI Comments History of Present Illness Details Mr. Sykes 67-year-old male returns for follow of his osteoarthritis and treatment with tramadol and Baclofen. The visit is facilitated through the use of the iPad translating service. He has osteoarthritis involving the hips, LS spine, and hands. Most of the problem seems to be in the LS spine. He finds the tramadol helpful and says it does not cause any sedation. He reports today that his hands swell up and hurt more since he started on Cosadex. Shoulder pain comes and goes and sometimes he cannot lift up his arms. Prostate cancer. Surgery in August 2023- taking Cosadex. He has an upcoming visit with radiation oncology. [facility] Medical History (Updated 07/07/23 @ 09:02 by RAIFTA Ortiz) Bilateral shoulder pain Decreased range of motion of right shoulder Intermittent pain and swelling of hand Lumbar spondylosis Low back pain Osteoarthritis HTN (hypertension) Surgical History H/O prostate biopsy Hx of shoulder surgery Family History Father Diabetes Mother Cancer Social History Household Members: Spouse Housing: House Alcohol intake: current Patient Tobacco Use Status: Former Tobacco user e-Cigarette/Vaping Use: Never Used Second Hand Smoke Exposure: No Current occupational status: retired Sexual orientation: Straight/Heterosexual Gender identity: Male Cognitive needs: No Hearing needs: No Vision needs: No Review of Systems Const All systems reviewed & are unremarkable except as noted in HPI and below Physical Exam Vital Signs: Last Vital Signs Pulse 66 07/07/23 08:47 BP 130/70 07/07/23 08:47 Pulse Ox 97 07/07/23 08:47 Oxygen Delivery Method Room Air 07/07/23 08:47 BMI result Body Mass Index 33.7 APPEARANCE: Patient in no acute distress EXTREMITIES: No edema, no calf tenderness, normal peripheral pulses. HEART:? Regular rhythm, S1-S2 heard, no murmurs, rubs or gallops. LUNG:? Clearauscultation JOINT EXAM: Lumbar Spine:? Alignment normal.? Limited flexion with pain over the lumbar spine. Tenderness to palpation of bilateral posterior buttocks. Occiput to w all test normal. Hands:?LEFT: Normal pain-free range of motion without tenderness, swelling, increased warmth or erythema. Able to make a full fist and has a good funeral director's assistant strength. Heberden's node digits IP joint and DIP 2, 3 and 4. Bony enlargement without tenderness at the thumb CMC joint. RIGHT: Normal pain-free range of motion without tenderness, swelling, increased warmth or erythema. Able to make a full fist and has a good funeral director's assistant strength. Bony enlargement without tenderness at the thumb CMC joint. Nontender Heberden's node digits IP joint and DIP 2, 3 and 4 Wrists:? Normal pain-free range of motion without tenderness, swelling, increased warmth or erythema. Elbows: Normal pain-free range of motion without tenderness, swelling, increased warmth or erythema. Shoulders:? Decrease ROM on right with pain above 90 degrees - usually happens every few weeks per patient. No tenderness, weakness, swelling, increased warmth or erythema. Hips: LEFT: Full range of motion with mild lumbar and groin pain reported with the extremes of internal or external rotation. RIGHT: Full range of motion with mild lumbar pain and buttock pain with extremes of internal and external rotation. No groin pain with motion. Hip bursa:.? No tenderness. Knees:?? Normal pain-free range of motion with slight patellofemoral crepitus but no effusion, tenderness, swelling, increased warmth or erythema.? There is no effusion or crepitation Ankles:? Normal pain-free range of motion without tenderness, swelling, increased warmth or erythema. Feet: Normal pain-free range of motion with slight bony enlargement and mild tenderness at the 1st MTP bilaterally. No soft tissue swelling, increased warmth or erythema. Assessment & Plan Assessment & Plan (1) Osteoarthritis of hands, bilateral: Code(s): M19.041 - Primary osteoarthritis, right hand; M19.042 - Primary osteoarthritis, left hand Qualifiers: Osteoarthritis type: primary Qualified Code(s): M19.041 - Primary osteoarthritis, right hand; M19.042 - Primary osteoarthritis, left hand (2) Medication monitoring encounter: Comment: Tramadol pain contract updated 02/24/2023 Code(s): Z51.81 - Encounter for therapeutic drug level monitoring (3) Lumbar spondylosis: Code(s): M47.816 - Spondylosis without myelopathy or radiculopathy, lumbar region (4) Intermittent pain and swelling of hand: Code(s): M79.643 - Pain in unspecified hand; M79.89 - Other specified soft tissue disorders Plan #Osteoarthritis involving the lower back, hips, hands and feet. Most proble matic for him has been the lower back pain which seems to be helped with the use of the tramadol. #Hand Swelling/Shoulder pain: Today he also reports intermittent swelling that happens to the dorsum of his hands since he started used bicalutamide (Capodex) for Prostate CA. This sounds like gout/Psuedogout. The swelling can last for about a week per patient. There is also tenderness to 1st MTPs but no swelling. I will do serology for gout and follow-up according to results. He has decrease ROM in right shoulder on exam today. Says it happens for about a week at a time when he cannot lift it wihout sever pain. However at other times it is OK. This could be calcific tendinitis, will obtain xrays for hands and shoulders. #Medication Monitoring: We reviewed that potential for sedation. He can also substitute a Tylenol for one of the tramadol 50 mg. The Mass Pat was reviewed. He seems to be taking the medicine as directed. He will continue to get the prescription of 4 tablets per day. I spent 30 minutes reviewing history, evaluating patient and documenting. Follow-up 4 months is recommended. Orders: Orders XR hand LT min 3V Today M79.643 - Pain in unspecified hand, M79.89 - Other specified soft tissue disorders Complete Blood Count Auto Diff Today M79.643 - Pain in unspecified hand, M79.89 - Other specified soft tissue disorders Erythrocyte Sedimentation Rate Today M79.643 - Pain in unspecified hand, M79.89 - Other specified soft tissue disorders Immunofixation Pnl, Serum Today M79.643 - Pain in unspecified hand, M79.89 - Other specified soft tissue disorders Immunoglobulins,IgG IgA IgM Today M79.643 - Pain in unspecified hand, M79.89 - Other specified soft tissue disorders Uric Acid Today M79.643 - Pain in unspecified hand, M79.89 - Other specified soft tissue disorders Protein Creatinine Ratio, Ur Today M79.643 - Pain in unspecified hand, M79.89 - Other specified soft tissue disorders Cyclic Citrullinated Peptide Today M25.511 - Pain in right shoulder, M25.512 - Pain in left shoulder, M79.643 - Pain in unspecified hand, M79.89 - Other specified soft tissue disorders XR hand RT min 3V Today M79.643 - Pain in unspecified hand, M79.89 - Other specified soft tissue disorders Comprehensive Met. Panel Today M79.643 - Pain in unspecified hand, M79.89 - Other specified soft tissue disorders C Reactive Protein Today M79.643 - Pain in unspecified hand, M79.89 - Other specified soft tissue disorders Anti Extractable Nuclear Ag Today M79.643 - Pain in unspecified hand, M79.89 - Other specified soft tissue disorders Protein Electrophoresis, Serum Today M79.643 - Pain in unspecified hand, M79.89 - Other specified soft tissue disorders Creatine Kinase Total Today M79.643 - Pain in unspecified hand, M79.89 - Other specified soft tissue disorders XR shoulder RT min 2V Today M25.511 - Pain in right shoulder, M25.512 - Pain in left shoulder, M25.611 - Stiffness of right shoulder, not elsewhere classified XR shoulder LT min 2V Today M25.511 - Pain in right shoulder, M25.512 - Pain in left shoulder, M25.611 - Stiffness of right shoulder, not elsewhere classified Rheumatoid Factor Today M25.511 - Pain in right shoulder, M25.512 - Pain in left shoulder, M79.643 - Pain in unspecified hand, M79.89 - Other specified soft tissue disorders Coding Level of Care Code Est Pt Level 4 (98225) Diagnoses Primary osteoarthritis of both hands M19.041; M19.042 Osteoarthritis type: primary Medication monitoring encounter Z51.81 Lumbar spondylosis M47.816 Intermittent pain and swelling of hand M79.643; M79.89
[2023-07-07 08:47] VITALS: BP 130/70; PULSE 66; O2SAT 97; BMI 33.7
== END 2023-07-07 09:06 | disposition home or self-care (01) ==
PROVIDERS: PCP Family Medicine; Visit Provider Nurse Practitioner Family
DX: M19.041 Primary osteoarthritis, right hand (principal); M19.042 Primary osteoarthritis, left hand; Z51.81 Encounter for therapeutic drug level monitoring; M47.816 Spondylosis without myelopathy or radiculopathy, lumbar region; M79.643 Pain in unspecified hand; M79.89 Other specified soft tissue disorders
CPT/HCPCS: 99214

== ENCOUNTER → 2023-07-07 08:29 | Outpatient (BNVA) | payer OTHER, SELFPAY | PROVIDERS: PCP Family Medicine; Visit Provider Nurse Practitioner Family | DX: Z51.81 Encounter for therapeutic drug level monitoring (principal); F11.20 Opioid dependence, uncomplicated; M19.041 Primary osteoarthritis, right hand; M19.042 Primary osteoarthritis, left hand; M47.816 Spondylosis without myelopathy or radiculopathy, lumbar region; M79.89 Other specified soft tissue disorders | CPT/HCPCS: 99212 ==

== ENCOUNTER 2023-07-14 10:46 | Outpatient (REF) | payer OTHER, SELFPAY ==
--- NOTE | ~2023-07-14 | XR_ITS ---
EXAMINATION: Bilateral shoulder series CLINICAL INFORMATION: Chronic pain both shoulders COMPARISON: None. TECHNIQUE: 4 views of each shoulder FINDINGS: Right shoulder: Glenohumeral joint: Normal. Acromial clavicular joint: Mild osteoarthritis manifested by small marginal osteophytes and capsular calcification or chondrocalcinosis. Surrounding bone and soft tissues unremarkable. Left shoulder: Glenohumeral joint: Small calcification adjacent to the superior glenoid may reflect a focal chondrocalcinosis or calcification of the capsule. No joint space narrowing. No marginal osteophytes. Acromioclavicular joint: Small marginal osteophytes indicative of mild osteoarthritis. Surrounding bone and soft tissues unremarkable. XR/XR shoulder RT min 2V IMPRESSION: RIGHT SHOULDER: Mild osteoarthritis of the acromioclavicular joint. Possible chondrocalcinosis LEFT SHOULDER: Mild osteoarthritis of the acromioclavicular joint. Possible chondrocalcinosis
--- NOTE | ~2023-07-14 | XR_ITS ---
EXAMINATION: 3 views of each hand CLINICAL INFORMATION: Chronic pain in the hands. COMPARISON: X-ray the left hand May 2016 TECHNIQUE: 3 views of each hand FINDINGS: Right hand: Second DIP joint small marginal osteophytes without joint space narrowing indicative of mild osteoarthritis. Remaining bones joints and soft tissues normal. Left hand: Bones joints and soft tissues are normal. No marginal erosions joint space narrowing or abnormal soft tissue calcifications. No change. XR/XR hand RT min 3V IMPRESSION: RIGHT HAND: Mild osteoarthritis of the second DIP joint. LEFT HAND: Normal.
--- NOTE | ~2023-07-14 | XR_ITS ---
EXAMINATION: 3 views of each hand CLINICAL INFORMATION: Chronic pain in the hands. COMPARISON: X-ray the left hand May 2016 TECHNIQUE: 3 views of each hand FINDINGS: Right hand: Second DIP joint small marginal osteophytes without joint space narrowing indicative of mild osteoarthritis. Remaining bones joints and soft tissues normal. Left hand: Bones joints and soft tissues are normal. No marginal erosions joint space narrowing or abnormal soft tissue calcifications. No change. XR/XR hand LT min 3V IMPRESSION: RIGHT HAND: Mild osteoarthritis of the second DIP joint. LEFT HAND: Normal.
--- NOTE | ~2023-07-14 | XR_ITS ---
EXAMINATION: Bilateral shoulder series CLINICAL INFORMATION: Chronic pain both shoulders COMPARISON: None. TECHNIQUE: 4 views of each shoulder FINDINGS: Right shoulder: Glenohumeral joint: Normal. Acromial clavicular joint: Mild osteoarthritis manifested by small marginal osteophytes and capsular calcification or chondrocalcinosis. Surrounding bone and soft tissues unremarkable. Left shoulder: Glenohumeral joint: Small calcification adjacent to the superior glenoid may reflect a focal chondrocalcinosis or calcification of the capsule. No joint space narrowing. No marginal osteophytes. Acromioclavicular joint: Small marginal osteophytes indicative of mild osteoarthritis. Surrounding bone and soft tissues unremarkable. XR/XR shoulder LT min 2V IMPRESSION: RIGHT SHOULDER: Mild osteoarthritis of the acromioclavicular joint. Possible chondrocalcinosis LEFT SHOULDER: Mild osteoarthritis of the acromioclavicular joint. Possible chondrocalcinosis
[2023-07-14 11:01] LABS: MANUAL DIFF FLAG NO
[2023-07-14 11:55] LABS: Basophils Percent Auto 0.5 % (0-2); Eosinophils Absolute Auto 0.2 X10*3/uL (0.0-0.4); Eosinophils Percent Auto 2.9 % (0-4); Hematocrit 40.6 % (42.0-52.0); Hemoglobin 14.4 g/dl (14.0-18.0); Imm Gran Abs Auto 0.03 X10*3/uL (0.00-0.03); Imm Gran Pct Auto 0.5 % (0.0-0.4); Lymphocytes Absolute Auto 1.3 X10*3/uL (1.2-4.9); Lymphocytes Percent Auto 23.1 % (20-40); Mean Corpuscular HGB Conc 35.5 g/dl (31.0-36.0); Mean Corpuscular Volume 87.5 fL (80.0-98.0); Mean Platelet Volume 8.9 fL (9.4-12.4); Monocytes Absolute Auto 0.4 X10*3/uL (0.1-1.2); Neutrophils Absolute Auto 3.6 x10*3/uL (2.0-8.3); Platelet Count 190 X10*3/uL (160-400); Red Blood Count 4.64 X10*6/uL (4.60-5.80); Red Cell Distribution Width 11.9 % (11.0-16.0); White Blood Count 5.5 X10*3/uL (4.8-10.8)
[2023-07-14 13:04] LABS: Alanine Aminotransferase 27 U/L (0-40); Albumin Level 4.1 g/dL (3.5-5.0); Alkaline Phosphatase 56 U/L (39-117); Anion Gap 10 (12-20); Aspartate Amino Transferase 20 U/L (5-37); Bilirubin Total 0.5 mg/dL (0.0-1.0); Blood Urea Nitrogen 20 mg/dL (9-16); C Reactive Protein 0.21 mg/dL (< or = 0.50); Calcium 9.2 mg/dL (8.4-10.2); Carbon Dioxide 27 mmol/L (22-29); Chloride 103 mmol/L (96-108); Estimated Glomerular Filt Rate > 60; Glucose Random 213 mg/dL (60-115); Potassium 4.4 mmol/L (3.3-5.1); Sodium 136 mmol/L (135-145)
[2023-07-14 13:11] LABS: Erythrocyte Sedimentation Rate 12 MM/HR (0-15)
[2023-07-14 14:54] LABS: Rheumatoid Factor < 13.0 IU/mL (<15.0); Uric Acid 5.1 mg/dL (3.4-7.0)
[2023-07-14 16:36] LABS: Creatinine Urine 138.34 mg/dL; Protein/Creatinine Ratio, Ur 0.06 (<0.2); Total Protein Urine Random 8 mg/dL (<12)
[2023-07-17 14:48] LABS: Cyclic Citrullinated Peptide <16 UNITS
[2023-07-18 08:59] LABS: SM/Ribonucleoprotein Ab <1.0 NEG AI (<1.0 NEG); Smith Protein <1.0 NEG AI (<1.0 NEG)
[2023-07-18 16:49] LABS: Prot Elec - Albumin 4.1 g/dL (3.8-4.8); Prot Elec - Alpha1 0.3 g/dL (0.2-0.3); Prot Elec - Alpha2 0.7 g/dL (0.5-0.9); Prot Elec - Beta 1 0.4 g/dL (0.4-0.6); Prot Elec - Beta 2 0.4 g/dL (0.2-0.5); Prot Elec - Total Protein 6.8 g/dL (6.1-8.1)
[2023-07-20 20:43] LABS: IgA 146 mg/dL (70-320); IgG 1134 mg/dL (600-1540); IgM 95 mg/dL (50-300)
== END 2023-07-14 10:47 | disposition home or self-care (01) ==
LOC: HO.LAB 10:46
PROVIDERS: PCP Family Medicine; Visit Provider Nurse Practitioner Family
DX: M25.611 Stiffness of right shoulder, not elsewhere classified (principal); M25.511 Pain in right shoulder; M25.512 Pain in left shoulder; M79.641 Pain in right hand; M79.642 Pain in left hand; M79.89 Other specified soft tissue disorders; G89.29 Other chronic pain
CPT/HCPCS: 36415; 73030; 73130; 80053; 82550; 82570; 82784; 84156; 84165; 84550; 85025; 85652; 86140; 86200; 86235; 86334; 86431

== ENCOUNTER 2023-12-28 10:12 | Outpatient (AMB) | payer OTHER, SELFPAY ==
--- NOTE | 2023-12-28 10:19 | MHC.PC.OV ---
Vital Signs 12/28/23 10:25 Height 5 ft 7 in Weight 212 lb 4 oz BMI 33.2 BP 118/60 Blood Pressure Location Lt brachial Position Sitting Respiration 12 Pulse 58 Pulse Source Pulse Oximeter Pulse Oximetry (%) 96 Oxygen Delivery Method Room Air Intake Visit Reasons: f/u fbs increased depressin and anxiety Intake Note: f/u for depression and anxiety Allergies No Known Allergies [No Known Allergies*] Allergy (Verified 12/28/23 10:25) Medication List - Last Reconciled 12/28/23 by Abhi Sparks MD baclofen 10 mg PO Q8H bicalutamide (Casodex) 50 mg PO DAILY bisacodyl (Dulcolax (bisacodyl)) 10 mg (2 x 5 mg) PO ONCE 1 day citalopram 20 mg PO DAILY 30 days miscellaneous medical supply Wipes, 3 packs per month, use as directed, 3 packs of wipes montelukast 10 mg PO DAILY 90 days polyethylene glycol 3350 (Miralax) 238 grams PO ONCE 1 day tamsulosin 0.4 mg PO QPM tramadol 50 mg PO TID PRN underpads (Bed Underpads) As directed, 3 per day, disposable Tobacco use date assessed: 09/16/22 HPI f/u fbs increased depressin and anxiety HPI Details 68 y/o male presents to f/u depression/anxiety, chronic conditions. Had seen urology 05/31/23 for prostate cancer - they had referred him to radiation oncology. He states they had not called him back yet. Blood pressure today 118/60, 58p. Blood sugars had been high about a year ago. Random glucose in June was over 200. Pt notes he continues taking citalopram 20mg for anxiety/depression. [facility] Medical History (Updated 12/28/23 @ 11:01 by Dandy Garcia) Bilateral shoulder pain Decreased range of motion of right shoulder Intermittent pain and swelling of hand Lumbar spondylosis Low back pain Osteoarthritis HTN (hypertension) Surgical History H/O prostate biopsy Hx of shoulder surgery Family History Father Diabetes Mother Cancer Social History Household Members: Spouse Housing: House Alcohol intake: current Patient Tobacco Use Status: Former Tobacco user e-Cigarette/Vaping Use: Never Used Second Hand Smoke Exposure: No Current occupational status: retired Sexual orientation: Straight/Heterosexual Gender identity: Male Cognitive needs: No Hearing needs: No Vision needs: No Questionnaire PHQ-9 Over the last 2 weeks, how often have you been bothered by any of the following problems? 1. Little interest or pleasure in doing things: more than half the days 2. Feeling down, depressed, or hopeless: more than half the days 3. Trouble falling or staying asleep, or sleeping too much: more than half the days 4. Feeling tired or having little energy: more than half the days 5. Poor appetite or overeating: several days 6. Feeling bad about yourself - or that you are a failure or have let yourself or your family down: more than half the days 7. Trouble concentrating on things, such as reading the newspaper or watching television: several days 8. Moving or speaking so slowly that other people could have noticed. Or the opposite - being so fidgety or restless that you have been moving around a lot more than usual: several days 9. Thoughts that you would be better off or of hurting yourself in some way: not at all Total score: 13 Depression Screening Interpretation: Positive Depression Screening Done: Yes 46601 - PHQ-9 Billing: Yes Source: Developed by Drs. Johnnie Haque, Qing West, Sincere Robertson and colleagues, with an educational erasmo from [employer]. AUDIT C Alcohol Use Questionnaire (AUDIT-C) 2. How many drinks containing alcohol do you have on a typical day when you are drinking?: 3 or 4 3. How often do you have six or more drinks on one occasion?: Less than monthly Total Score: 2 MERY-7 AMB Questionnaire MERY-7 Date MERY - 7 assessed: 12/28/23 Feeling nervous, anxious, or on edge: 2 = More than half the days Not being able to stop or control worryin = More than half the days Worrying too much about different things: 0 = Not at all Trouble relaxin = Not at all Being so restless that it is hard to sit still: 2 = More than half the days Becoming easily annoyed or irritable: 2 = More than half the days Feeling afraid as if something awful might happen: 1 = Several days Total MERY-7 score (0-4 normal; 5-9 mild; 10-14 moderate; 15-21 severe): 9 Source: Developed by Drs. Johnnie Haque, Qing West, Sincere Robertson and colleagues, with an educational erasmo from [employer]. MERY-7 Assessment Billing MERY-7 Assessment Tool: MERY-7 Assessment 46770 Review of Systems Const Denies chills, Denies fatigue, Denies fever(s), Denies headache(s) and Denies weakness ENT Denies dizziness and Denies headache(s) Card Denies dyspnea Resp Denies cough, Denies dyspnea, Denies wheezing and Denies other (shortness of breath) Musc Denies numbness and Denies tingling Neuro Denies dizziness, Denies headache(s), Denies numbness, Denies tingling and Denies weakness Psych Denies anxiety and Denies depression Endo Denies fatigue Aller/Immun Denies wheezing Physical exam (Primary Care) Vital Signs: Last Vital Signs Pulse 58 12/28/23 10:25 Resp 12 12/28/23 10:25 BP 118/60 12/28/23 10:25 Pulse Ox 96 12/28/23 10:25 Oxygen Delivery Method Room Air 12/28/23 10:25 BMI result Body Mass Index 33.2 Tobacco/Smoking Status: Tobacco use Status Tobacco use date assessed 09/16/22 12/28/23 10:20 Patient Tobacco Use Status Former Tobacco user 12/28/23 10:20 e-Cigarette/Vaping Use Never Used 12/28/23 10:20 PHQ-9: PHQ-9 Score PHQ-9: Total score 13 12/28/23 10:59 Depression Screening Interpretation: Positive Const General: well developed; No acute distress Nutritional Appearance: well nourished Orientation/consciousness: patient oriented x3 HENMT Head: Yes normocephalic and Yes atraumatic Eyes General: appearance normal, both eyes and all related structures Pupils: Equal, round and reactive pupils present EOM: EOMs intact bilaterally Resp Effort & Inspection: normal respiratory effort Neuro General: patient oriented x3 and gait normal Cranial nerves: Yes Equal, round and reactive pupils present Psych Affect: normal affect Coding Level of Care Code Est Pt Level 4 (18510) Diagnoses Adenocarcinoma of prostate C61 Anxiety and depression F41.9; F32.A Elevated fasting blood sugar R73.01 HTN (hypertension) I10 Additional Codes MERY-7 Assessment Billing - MERY-7 Assessment Tool: MERY-7 Assessment 83240 ([id number]) Assessment & Plan Assessment & Plan (1) Adenocarcinoma of prostate: Code(s): C61 - Malignant neoplasm of prostate Category: Medical Plan: Patient?is?followed?by? Patient?says?he?wants?to?proceed?with?radiation?treatments Advised?him?to?call??office?to?get?referral?to?the?radiation?oncologist (2) Anxiety and depression: Code(s): F41.9 - Anxiety disorder, unspecified; F32.A - Depression, unspecified Category: Medical Plan: Taking?citalopram?20?mg?daily Patient?needs?a?refill-refilled (3) Elevated fasting blood sugar: Code(s): R73.01 - Impaired fasting glucose Category: Medical Plan: Patient?has?had?elevated?fasting?blood?sugar?but?has?not?return?for?follow-up. Patient?declined?in?office?testing?for?blood?sugar?or?A1c Patient?agrees?to?testing?these?during?his?lab?draw?so?I?will?order?these?with?His?labs. (4) HTN (hypertension): Code(s): I10 - Essential (primary) hypertension Category: Medical Plan: Blood?pressure?is?controlled Orders: Orders Comprehensive [place]. Panel Fast Today R73.01 - Impaired fasting glucose, Z00.00 - Encounter for general adult medical examination without abnormal findings Lipid Panel Today Z00.00 - Encounter for general adult medical examination without abnormal findings TSH reflex Free T4 Today Z00.00 - Encounter for general adult medical examination without abnormal findings Hemoglobin A1c Today R73.01 - Impaired fasting glucose UA and rflx microscopic Today Z00.00 - Encounter for general adult medical examination without abnormal findings Microalbumin, Random (w Creat) Today I10 - Essential (primary) hypertension Complete Blood Count Auto Diff Today Z00.00 - Encounter for general adult medical examination without abnormal findings Medications: Refilled underpads (Bed Underpads) As directed, 3 per day, disposable 100 ea 11RF N40.1 - Benign prostatic hyperplasia with lower urinary tract symptoms citalopram 20 mg PO DAILY 30 days 30 tabs 2RF
[2023-12-28 10:25] VITALS: BP 118/60; PULSE 58; RESP 12; O2SAT 96; BMI 33.2
== END 2023-12-28 11:17 | disposition home or self-care (01) ==
PROVIDERS: PCP Family Medicine; Visit Provider Family Medicine
DX: C61 Malignant neoplasm of prostate (principal); F41.9 Anxiety disorder, unspecified; F32.A Depression, unspecified; R73.01 Impaired fasting glucose; I10 Essential (primary) hypertension

== ENCOUNTER → 2023-12-28 10:12 | Outpatient (BNVA) | payer OTHER, SELFPAY | PROVIDERS: PCP Family Medicine; Visit Provider Family Medicine | DX: C61 Malignant neoplasm of prostate (principal); F41.9 Anxiety disorder, unspecified; F32.A Depression, unspecified; R73.01 Impaired fasting glucose; I10 Essential (primary) hypertension | CPT/HCPCS: 96127; 99212 ==

== ENCOUNTER 2024-03-19 09:07 | Outpatient (AMB) | payer OTHER, SELFPAY ==
[2024-03-19 09:10] VITALS: BP 118/70; PULSE 58; O2SAT 98; BMI 34.0
--- NOTE | 2024-03-19 09:10 | MHC.OFFVIS ---
Vital Signs 03/19/24 09:10 Height 5 ft 7 in Weight 217 lb 2.485 oz BMI 34.0 BP 118/70 Blood Pressure Location Lt brachial Position Sitting Pulse 58 Pulse Source Pulse Oximeter Pulse Oximetry (%) 98 Oxygen Delivery Method Room Air Intake Visit Reasons: OA Intake Note: Patient last seen by Alyssa Montoya on 07/07/23. Presents today for OA follow up and XR hand/shoulder/labs test results. Patient states he is requesting Lidocaine patch today, states it helps him. Stone Carriage Operator Name: Dandy [id number] Allergies No Known Allergies [No Known Allergies*] Allergy (Verified 03/19/24 09:15) Medication List - Last Reconciled 03/19/24 by Mckayla Coto MD baclofen 10 mg PO Q8H bicalutamide (Casodex) 50 mg PO DAILY bisacodyl (Dulcolax (bisacodyl)) 10 mg (2 x 5 mg) PO ONCE 1 day citalopram 20 mg PO DAILY 30 days miscellaneous medical supply Wipes, 3 packs per month, use as directed, 3 packs of wipes montelukast 10 mg PO DAILY 90 days polyethylene glycol 3350 (Miralax) 238 grams PO ONCE 1 day tamsulosin 0.4 mg PO QPM tramadol 50 mg PO TID PRN underpads (Bed Underpads) As directed, 3 per day, disposable HPI Comments Details: 68-year-old male with history of prostate cancer returns for follow-up. He has history of generalized osteoarthritis. He takes tramadol 3 to 4 times a day and provide some relief. He is also requesting a lidocaine patch. States that it helped him in the past. He applies it on his back and knees. [facility] Medical History (Updated 03/19/24 @ 09:29 by Mckayla Coto MD) Lumbar spondylosis Low back pain Osteoarthritis HTN (hypertension) Surgical History H/O prostate biopsy Hx of shoulder surgery Family History Father Diabetes Mother Cancer Social History Household Members: Spouse Housing: House Alcohol intake: current Patient Tobacco Use Status: Former Tobacco user e-Cigarette/Vaping Use: Never Used Second Hand Smoke Exposure: No Current occupational status: retired Sexual orientation: Straight/Heterosexual Gender identity: Male Cognitive needs: No Hearing needs: No Vision needs: No Review of Systems Musc Reports back pain, Reports arthralgias and Reports stiffness Physical Exam Vital Signs: Last Vital Signs Pulse 58 03/19/24 09:10 BP 118/70 03/19/24 09:10 Pulse Ox 98 03/19/24 09:10 Oxygen Delivery Method Room Air 03/19/24 09:10 BMI result Body Mass Index 34.0 Const General: cooperative, healthy appearing and comfortable Nutritional Appearance: obese Orientation/consciousness: patient oriented x3 Limitations: no limitations HEENT Head: Yes normocephalic and Yes atraumatic Resp Effort & Inspection: normal respiratory effort and able to speak in complete sentences Skin General skin exam: no rashes or lesions noted Neuro General: patient oriented x3 Extrem Other: Osteoarthritic changes of both hands Normal range of motion of both shoulders with some stiffness with full abduction No knee swelling or warmth bilaterally Assessment & Plan Assessment & Plan (1) Generalized osteoarthritis: Code(s): M15.9 - Polyosteoarthritis, unspecified Category: Medical Plan: 68-year-old male with generalized osteoarthritis returns for follow-up. He also has history of prostate cancer on Casodex. Continues to feel about the same. He he takes tramadol 50 mg 3 to 4 times a day with reasonable relief of his pain. Tramadol refilled. Also requesting a lidocaine patch. I prescribed lidocaine patch advised patient that it can be denied and if denied he can buy OTC Salonpas patches Follow-up in 6 months Plan I spent 15 minutes reviewing patient's chart, evaluating patient, counseling patient and documenting in the chart Medications: New lidocaine 5% leave on most painful area for up to 12 hrs topical 30 ea 2RF Coding Level of Care Code Est Pt Level 3 (78516) Diagnoses Generalized osteoarthritis M15.9
== END 2024-03-19 09:28 | disposition home or self-care (01) ==
PROVIDERS: PCP Family Medicine; Visit Provider Student in an Organized Health Care Education/Training Program
DX: M15.9 Polyosteoarthritis, unspecified (principal)
CPT/HCPCS: 99213

== ENCOUNTER → 2024-03-19 09:07 | Outpatient (BNVA) | payer OTHER, SELFPAY | PROVIDERS: PCP Family Medicine; Visit Provider Student in an Organized Health Care Education/Training Program | DX: M15.9 Polyosteoarthritis, unspecified (principal) | CPT/HCPCS: 99212 ==

== ENCOUNTER 2024-03-21 11:18 | Outpatient (AMB) | payer OTHER, SELFPAY ==
--- NOTE | 2024-03-20 19:50 | A.OFFVIS_ITS ---
Intake Visit Reasons: follow up Intake Note: Patient is present for follow up prostate cancer Urology Med: Tamsulosin, casodex Antibiotic Allergy: None Blood Thinner: None. Electrical Hardware Engineer Required: Yes Electrical Hardware Engineer Language: Oscillograph Technician Name: Shara Barrett Accompanied by: Nephew or Niece Allergies No Known Allergies [No Known Allergies*] Allergy (Verified 03/21/24 11:54) HPI Comments Details: 03/21/24--Solomon is a 68-year-old male who presents today to the office for a follow-up prostate cancer. Prostate biopsy ?08/25/22-- significant for prostatic adenocarcinoma on the left base medial apex of highest [place] score 3+4=7. Polaris molecular score is 4.0. Last seen 12/12/22--discussed neoadjuvant hormonal therapy and radiation. He was seen by Dr. Stacia Gomes Radiation Oncology, and was sent to urology of [place] however patient does not want surgery; will send him back to Dr. Gomes, continue Casodex until follow-up with radiation oncology, PSA ordered. 12/12/2022? He is followed today for PET results. Certified Nepali speaker was present during the visit. He was last seen by me on 09/15/2022 for adenocarcinoma of the prostate. CT Pet scan and polaris was ordered during that time. Insurance denied authorization for PET CT. I discussed results of Polaris molecular score is 4.0. Discussed options to include neoadjuvant hormonal therapy. He wants to consider radiation oncology, vs radical prostatectomy. I will start casodex 50 mg daily, and order firmagon. Referral to radiation oncology, Stacia Gomes and surgical urology oncology Dr. Sauceda. 12/12/2022: Evaluation today?UA? leukocytes: negative; blood: negative. 09/15/22--?Certified builder beam was present during the visit.?The patient was evaluated initially on 06/06/22 for elevated PSA.? PSA on 05/13/2022 was 9.46 ng/mL. He is S/P prostate biopsy on 08/25/22.? I reviewed pathology results with him? I discussed that [place] score notes that the biopsy samples were in the intermittent range, I discussed sending the biopsy for Gene analysis, Prolaris lab and we will refer him to radiation oncology for further discussion on treatment options.?? I did discuss that treatmenincludes active surveillance which we generally recommend for low-grade cancer and surgical removal was also discussed.? Prostate biopsy results reviewed?08/25/22-- significant for prostatic adenocarcinoma on the left base medial apex of highest Bryson score 3+4=7. Prostate volume was estimated to be 65.4 mL.? Evaluation today-- Blood:? 80 Arturo/uL, leukocytes: negative. Plan: Neoadjuvant hormonal therapy, will refer to the radiation oncologist, and surgical consultation for radical prostatectomy. bone scan. PFSH Medical History Lumbar spondylosis Low back pain Osteoarthritis HTN (hypertension) Surgical History H/O prostate biopsy Hx of shoulder surgery Family History Father Diabetes Mother Cancer Social History Household Members: Spouse Housing: House Alcohol intake: current Patient Tobacco Use Status: Former Tobacco user e-Cigarette/Vaping Use: Never Used Second Hand Smoke Exposure: No Current occupational status: retired Sexual orientation: Straight/Heterosexual Gender identity: Male Cognitive needs: No Hearing needs: No Vision needs: No Review of Systems Const All systems reviewed & are unremarkable except as noted in HPI and below Reports no additional complaints Eyes Reports no additional complaints ENT Reports no additional complaints Card Reports no additional complaints Resp Reports no additional complaints GI Reports no additional complaints Reports as per HPI Musc Reports no additional complaints Skin/Breast Reports system reviewed and no additional complaints, except as documented Neuro Reports no additional complaints Psych Reports no additional complaints Endo Reports no additional complaints Omid/Lymph Reports no additional complaints Aller/Immun Reports no additional complaints Assessment & Plan Assessment & Plan (1) Adenocarcinoma of prostate: Code(s): C61 - Malignant neoplasm of prostate Category: Medical Plan FU with Radiation Oncology Orders: Orders PSA,Total (Free>4and<10) 03/21/24 C61 - Malignant neoplasm of prostate Patient Instructions: The patient had an opportunity to ask questions regarding treatment plan. The patient expressed understanding and agreement with the above treatment plan. The patient is aware they should contact our office by phone for worsening of their current condition or the appearance of new symptoms. Compliance is encouraged with any medications and followup testing that is ordered. It is a privilege to be allowed the opportunity to participate in the urologic care of your patient. If you have any questions or concerns regarding treatment for the above conditions please do not hesitate to contact me. The office telephone contact is [phone]. This note is constructed in part using voice recognition software. While every effort has been made to ensure accuracy restaurant attendant errors may have been included. Yours sincerely, Veronica Alfredo MD Coding Level of Care Code Est Pt Level 4 (83030) Diagnoses Adenocarcinoma of prostate C61
== END 2024-03-21 12:29 | disposition home or self-care (01) ==
PROVIDERS: PCP Family Medicine; Visit Provider Urology
DX: C61 Malignant neoplasm of prostate (principal)
CPT/HCPCS: 99214

== ENCOUNTER → 2024-03-21 11:18 | Outpatient (BNVA) | payer OTHER, SELFPAY | PROVIDERS: PCP Family Medicine; Visit Provider Urology | DX: C61 Malignant neoplasm of prostate (principal) | CPT/HCPCS: 99212 ==

== ENCOUNTER 2024-05-22 10:08 | Outpatient (REF) | payer OTHER, SELFPAY ==
[2024-05-22 10:41] LABS: MANUAL DIFF FLAG NO
[2024-05-22 11:30] LABS: Basophils Percent Auto 0.8 % (0-2); Eosinophils Absolute Auto 0.2 X10*3/uL (0.0-0.4); Eosinophils Percent Auto 3.7 % (0-4); Hematocrit 42.3 % (42.0-52.0); Hemoglobin 14.6 g/dl (14.0-18.0); Imm Gran Abs Auto 0.02 X10*3/uL (0.00-0.03); Imm Gran Pct Auto 0.4 % (0.0-0.4); Lymphocytes Absolute Auto 1.6 X10*3/uL (1.2-4.9); Lymphocytes Percent Auto 33.3 % (20-40); Mean Corpuscular HGB Conc 34.5 g/dl (31.0-36.0); Mean Corpuscular Hemoglobin 30.4 pg (27.0-33.0); Mean Corpuscular Volume 87.9 fL (80.0-98.0); Monocytes Absolute Auto 0.5 X10*3/uL (0.1-1.2); Monocytes Percent Auto 10.1 % (2-11); Neutrophils Absolute Auto 2.5 x10*3/uL (2.0-8.3); Neutrophils Percent Auto 51.7 % (45-73); Platelet Count 186 X10*3/uL (160-400); Red Blood Count 4.81 X10*6/uL (4.60-5.80); Red Cell Distribution Width 11.9 % (11.0-16.0); White Blood Count 4.9 X10*3/uL (4.8-10.8)
[2024-05-22 11:35] LABS: Estimated Average Glucose 117 mg/dL; Hemoglobin A1C 146.9401 umol/L; Hemoglobin A1c % 5.7 % (<6.0)
[2024-05-22 11:39] LABS: Appearance Urine Clear; Color Urine Yellow; Glucose Urine UA Negative (Negative); Leukocyte Esterase Urine Negative (Negative); Nitrite Urine Negative (Negative); PH 6.5 (5.0-9.0); Urine Blood Negative (Negative); Urine Ketones Negative (Negative); Urine Protein Negative (Neg-Trace)
[2024-05-22 11:56] LABS: Creatinine Urine 89.45 mg/dL; Microalbum/Creatinine Ratio Ur 20.1 ug/mg cr (<30)
--- OUTSIDE RECORDS SUMMARY | 2024-05-22 12:13 | XMS_ITS | Clinical Summary ---
Author Organization [facility] Address [address] [place] [address] Care Team Providers Care Demurrage Worker Name Role Phone Pcp, No Primary Care Provider Unavailabl e Social History Tobacco Use Types Packs/Day Years Used Date Smoking Tobacco: Never Assessed Sex and Gender Information Value Date Recorded Sex Assigned at Not on file Gender Identity Not on file Sexual Orientation Not on file Plan of Treatment Health Maintenance Due Date Last Done Comments Hepatitis C Virus Screening 1955 DTaP/Tdap/Td Vaccines (1 - Tdap) 12/14/1975 Pneumococcal Vaccines 50+ (1 of 1 - PCV) 2006 Zoster (Shingles) Vaccine (1 of 2) 2006 COVID-19 Vaccine ( - 2023-2 5 season) 2023 RSV Vaccine 60 years and old er and Patients (1 - 1-dose 75+ series) 12/14/2031 Hepatitis B Vaccines Aged Out No long er eligible based on patient's age to complete this topic Care Teams Demurrage Worker Relationship Specialty Start Date End Date Pcp, Myra PCP - General General Medicine 02/02/23
--- OUTSIDE RECORDS SUMMARY | 2024-05-22 12:13 | XMS_ITS | Encounter Summary ---
Author Organization [facility] Address [address] [place] [address] Care Team Providers Care Carbon Paper Coating Machine Setter Name Role Phone Pcp, No Primary Care Provider Unavailabl e Reason for Visit * Reason Comments Appointment Encounter Details Date Type Department Care Team (Late st Contact Info) Description 01/30/2023 Telephone [facility] [address] [place] [address] Rene Sauceda MD [address] [phone] Appointment Social History Tobacco Use Types Packs/Day Years Used Date Smoking Tobacco: Never Assessed Sex and Gender Information Value Date Recorded Sex Assigned at Not on file Gender Identity Not on file Sexual Orientation Not on file documented as of this encounter Miscellaneous Notes * Telephone Encounter - Efrem Pena - 02/02/2023 3:27 PM EST Called pt to help schedule consult visit with Dr. Sauceda no brass pickler, lvm. Please transfer call to vt. documented in this encounter Plan of Treatment Not on file documented as of this encounter Visit Diagnoses Not on filedocumented in this encounter Care Teams Carbon Paper Coating Machine Setter Relationship Specialty Start Date End Date Pcp, No PCP - General General Medicine 02/02/23 documented as of this encounter
[2024-05-22 12:14] LABS: Alanine Aminotransferase 30 U/L (0-40); Anion Gap 11 (12-20); Aspartate Amino Transferase 32 U/L (5-37); Bilirubin Total 0.8 mg/dL (0.0-1.0); Blood Urea Nitrogen 18 mg/dL (9-16); Calcium 8.9 mg/dL (8.4-10.2); Carbon Dioxide 27 mmol/L (22-29); Chloride 107 mmol/L (96-108); Cholesterol 169 mg/dL (<200); Estimated Glomerular Filt Rate > 60; Glucose Fasting 140 mg/dL (60-99); HDL Cholesterol 34 mg/dL (>40); LDL Cholesterol Calculated 112 mg/dL (<100); Potassium 4.5 mmol/L (3.3-5.1); Sodium 140 mmol/L (135-145); Total Protein 7.3 g/dL (6.5-8.0); Triglycerides 115 mg/dL (<150)
[2024-05-22 12:23] LABS: PSA,Total (Free>4and<10) 5.12 ng/mL (0.00-4.00)
[2024-05-22 13:08] LABS: TSH reflex Free T4 1.79 uIU/mL (0.32-4.0)
[2024-05-22 13:31] LABS: Alkaline Phosphatase 52 U/L (39-117)
[2024-05-23 11:34] LABS: Free Prostate Spec Ag 0.4 ng/mL; Percent Free Prostate Spec Ag 8 % (calc) (>25); Prostate Specific Ag Total 4.8 ng/mL (< OR = 4.0)
== END 2024-05-22 10:09 | disposition home or self-care (01) ==
LOC: HO.LAB 10:08
PROVIDERS: Absent Provider Urology; PCP Family Medicine; Visit Provider Family Medicine
DX: Z00.00 Encounter for general adult medical examination without abnormal findings (principal); C61 Malignant neoplasm of prostate; R73.01 Impaired fasting glucose; I10 Essential (primary) hypertension; Z12.5 Encounter for screening for malignant neoplasm of prostate
CPT/HCPCS: 36415; 80053; 80061; 81003; 82043; 82570; 83036; 84153; 84154; 84443; 85025

== ENCOUNTER 2024-05-30 08:14 | Outpatient (AMB) | payer OTHER, SELFPAY ==
--- NOTE | 2024-05-30 08:33 | MHC.PC.OV ---
Vital Signs 05/30/24 08:42 Height 5 ft 7 in Weight 221 lb 6 oz BMI 34.7 BP 130/60 Blood Pressure Location Rt brachial Position Sitting Respiration 14 Pulse 67 Pulse Source Pulse Oximeter Temp 97.8 F Temp Source Oral Pulse Oximetry (%) 97 Oxygen Delivery Method Room Air Intake Visit Reasons: Covid F/U Intake Note: lab result review Self Defense Instructor Required: Yes Self Defense Instructor Language: Waste Baler Name: [id number] Information Interpreted: clinical only Allergies No Known Allergies [No Known Allergies*] Allergy (Verified 05/30/24 08:40) Tobacco use date assessed: 09/16/22 HPI Covid F/U HPI Details 68 y/o male presents to f/u labs, elevated FBS. Labs drawn 05/22/24. Reviewed labs with pt. A1c 5.7%, elevated fasting glucose of 140. Triglycerides 115. TC 169. LDL 112. HDL low at 34. Total PSA 5.12 ng/mL. Blood pressure today 130/60, 67p. HPI Comments History of Present Illness Details Documentation assistance for tanna Sparks MD, was provided by Dandy Garcia,? Personnel Records Clerk on 05/30/2024 at 9:04 AM EST. I, Dr. Sparks, have read, observed, and verified documentation. ?? PFSH Medical History Lumbar spondylosis Low back pain Osteoarthritis HTN (hypertension) Surgical History H/O prostate biopsy Hx of shoulder surgery Family History Father Diabetes Mother Cancer Social History Household Members: Spouse Housing: House Alcohol intake: current Patient Tobacco Use Status: Former Tobacco user e-Cigarette/Vaping Use: Never Used Second Hand Smoke Exposure: No Current occupational status: retired Sexual orientation: Straight/Heterosexual Gender identity: Male Cognitive needs: No Hearing needs: No Vision needs: No Questionnaire Thrive Questionnaire Date Thrive assessed: 05/24/24 I am a: Patient What is your living situation today?: I have a steady place to live Within the past 12 months, did the food you bought not last and you didn't have the money to get more?: Sometimes True Within the past 12 months, did you worry whether your food would run out before you got money to buy more?: Sometimes True Do you have trouble paying for medicines?: No Do you have trouble getting transportation to medical appointments?: Yes Do you have trouble paying your heating and electricity bill?: Yes Do you have trouble taking care of your child, family member or friend?: No Do you have trouble with day-to-day activities such as bathing, preparing meals, shopping, managing finances, etc.?: Yes Are you currently unemployed and looking for a job?: No Are you interested in more education?: No Please select the resources that you would like help with: None Currently or been in a relationship where the following occur: I choose not to answer THRIVE Score: 4 MERY-7 AMB Questionnaire MERY-7 Date MERY - 7 assessed: 12/28/23 Source: Developed by Drs. Johnnie Haque, Qing West, Sincere Robertson and colleagues, with an educational erasmo from [email or web address]. Review of Systems Const Denies chills, Denies fatigue, Denies fever(s), Denies headache(s) and Denies weakness ENT Denies dizziness and Denies headache(s) Card Denies dyspnea Resp Denies cough, Denies dyspnea, Denies wheezing and Denies other (shortness of breath) Musc Denies numbness and Denies tingling Neuro Denies dizziness, Denies headache(s), Denies numbness, Denies tingling and Denies weakness Psych Denies anxiety and Denies depression Endo Denies fatigue Aller/Immun Denies wheezing Physical exam (Primary Care) Vital Signs: Last Vital Signs Temp 97.8 F 05/30/24 08:42 Pulse 67 05/30/24 08:42 Resp 14 05/30/24 08:42 BP 130/60 05/30/24 08:42 Pulse Ox 97 05/30/24 08:42 Oxygen Delivery Method Room Air 05/30/24 08:42 BMI result Body Mass Index 34.7 Tobacco/Smoking Status: Tobacco use Status Tobacco use date assessed 09/16/22 05/30/24 08:34 Patient Tobacco Use Status Former Tobacco user 05/30/24 08:34 e-Cigarette/Vaping Use Never Used 05/30/24 08:34 Thrive Assessment: Date of Thrive Assessment Date Thrive assessed 05/24/24 05/30/24 08:34 Currently or been in a relationship where the following occur: I choose not to answer Const General: well developed; No acute distress Nutritional Appearance: well nourished and obese Orientation/consciousness: patient oriented x3 HENMT Head: Yes normocephalic and Yes atraumatic Eyes General: appearance normal, both eyes and all related structures Pupils: Equal, round and reactive pupils present EOM: EOMs intact bilaterally Resp Effort & Inspection: normal respiratory effort Neuro General: patient oriented x3 and gait normal Cranial nerves: Yes Equal, round and reactive pupils present Psych Affect: normal affect Coding Level of Care Code Est Pt Level 4 (71446) Diagnoses Pre-diabetes R73.03 HTN (hypertension) I10 Elevated LDL cholesterol level E78.00 Low HDL (under 40) E78.6 Adenocarcinoma of prostate C61 Assessment & Plan Assessment & Plan (1) Pre-diabetes: Code(s): R73.03 - Prediabetes Category: Medical Plan: A1c?5.7%?is?pre?diabetes?range Encouraged?diet?low?in?sugars?and?starches Encouraged?weight?loss?and?exercise (2) HTN (hypertension): Code(s): I10 - Essential (primary) hypertension Category: Medical Plan: Blood?pressure?is?controlled.??Goal?is?less?than?140/90 (3) Elevated LDL cholesterol level: Code(s): E78.00 - Pure hypercholesterolemia, unspecified Category: Medical Plan: LDL?cholesterol?is?mildly?above?goal?less?than?100 Encouraged?a?diet?lower?in?saturated?fats?and?cholesterol Encouraged?weight?loss?and?exercise (4) Low HDL (under 40): Code(s): E78.6 - Lipoprotein deficiency Category: Medical Plan: HDL?is?too?low Encouraged?exercise (5) Adenocarcinoma of prostate: Code(s): C61 - Malignant neoplasm of prostate Category: Medical Plan: Patient?is?followed?by?Urology He?has?follow-up?appointments Orders: Orders Lipid Panel Today E78.00 - Pure hypercholesterolemia, unspecified, Z00.00 - Encounter for general adult medical examination without abnormal findings Hemoglobin A1c Today R73.01 - Impaired fasting glucose, R73.03 - Prediabetes Comprehensive Cora. Panel Fast Today Z00.00 - Encounter for general adult medical examination without abnormal findings Medications: Refilled miscellaneous medical supply Wipes, 3 packs per month, use as directed, 3 packs of wipes 3 ea 11RF N40.1 - Benign prostatic hyperplasia with lower urinary tract symptoms underpads (Bed Underpads) As directed, 3 per day, disposable 100 ea 11RF N40.1 - Benign prostatic hyperplasia with lower urinary tract symptoms
--- OUTSIDE RECORDS SUMMARY | 2024-05-30 08:34 | XMS_ITS | Clinical Summary ---
Author Organization [facility] Address [address] [place] [address] Care Team Providers Care Sales Marketing Director Name Role Phone Pcp, No Primary Care [...] age to complete this topic Care Teams Sales Marketing Director Relationship Specialty Start Date End Date Pcp, Myra PCP - General General Medicine 02/02/23
--- OUTSIDE RECORDS SUMMARY | 2024-05-30 08:34 | XMS_ITS | Encounter Summary ---
Author Organization [facility] Address [address] [place] [address] Care Team Providers Care First Officer Name Role Phone Pcp, No Primary Care Provider Unavailabl e Reason for Visit * Reason Comments Appointment Encounter Details Date Type Department Care Team (Late st Contact Info) Description 01/30/2023 Telephone [facility] [address] [place] [address] Rene Sauceda MD [address] [place] [address] [phone] Appointment Social History Tobacco Use Types Packs/Day [...] schedule consult visit with Dr. 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 Please transfer call to ma. documented in this encounter Plan of Treatment Not on file documented as of this encounter Visit Diagnoses Not on filedocumented in this encounter Care Teams First Officer Relationship Specialty Start Date End Date Pcp, No PCP - General General Medicine 02/02/23 documented as of this encounter
[2024-05-30 08:42] VITALS: BP 130/60; PULSE 67; RESP 14; TEMP 36.6; O2SAT 97; BMI 34.7
== END 2024-05-30 09:14 | disposition home or self-care (01) ==
PROVIDERS: PCP Family Medicine; Visit Provider Family Medicine
DX: R73.03 Prediabetes (principal); C61 Malignant neoplasm of prostate; I10 Essential (primary) hypertension; E78.00 Pure hypercholesterolemia, unspecified; E78.6 Lipoprotein deficiency

== ENCOUNTER → 2024-05-30 08:14 | Outpatient (BNVA) | payer OTHER, SELFPAY | PROVIDERS: PCP Family Medicine; Visit Provider Family Medicine | DX: R73.03 Prediabetes (principal); I10 Essential (primary) hypertension; E78.00 Pure hypercholesterolemia, unspecified; E78.6 Lipoprotein deficiency; C61 Malignant neoplasm of prostate | CPT/HCPCS: 99212 ==

== ENCOUNTER 2024-06-17 08:37 | Outpatient (AMB) | payer OTHER, SELFPAY ==
--- NOTE | 2024-06-17 08:12 | A.OFFVIS_ITS ---
Intake Visit Reasons: 3M PSA Intake Note: Patient is present for 3 month follow up/PSA Free PSA:0.4 Total PSA:5.12 Total (off-site):4.8 Urology Med: Tamsulosin, casodex Antibiotic Allergy: None Blood Thinner: None Rn Outpatient Surgery Required: Yes Rn Outpatient Surgery Language: Circulation Manager Name: [id number] Information Interpreted: non-clinical & clinical Accompanied by: Nephew or Niece Allergies No Known Allergies [No Known Allergies*] Allergy (Verified 06/17/24 08:47) Medication List - Last Reconciled 06/17/24 by Veronica Alfredo MD baclofen 10 mg PO Q8H bicalutamide (Casodex) 50 mg PO DAILY bisacodyl (Dulcolax (bisacodyl)) 10 mg (2 x 5 mg) PO ONCE 1 day citalopram 20 mg PO DAILY 30 days lidocaine 5% leave on most painful area for up to 12 hrs topical miscellaneous medical supply Wipes, 3 packs per month, use as directed, 3 packs of wipes montelukast 10 mg PO DAILY 90 days polyethylene glycol 3350 (Miralax) 238 grams PO ONCE 1 day tamsulosin 0.4 mg PO QPM tramadol 50 mg PO TID PRN underpads (Bed Underpads) As directed, 3 per day, disposable HPI Comments Details: 06/17/24--Solomon is a 68-year-old male who presents today to the office for a follow-up prostate cancer. The patient is a 68-year-old male presenting with a follow-up for prostate cancer management. Initially diagnosed following a prostate biopsy on 08/25/22, his Bryson score was determined to be 3+4=7. Further analysis revealed a Polaris molecular score of 4.0. The patient opted for radiation therapy and began treatment with Bicalutamide 50 mg daily. Since initiation, his PSA levels have decreased, indicating a response to therapy. He was seen by Dr. Stacia Gomes Radiation Oncology, and was sent to [facility] of [place] however patient does not want surgery; will send him back to Dr. Gomes, continue Casodex until follow-up with radiation oncology. However, there has been a delay in proceeding with radiation therapy due to difficulties in contacting the radiation oncologist. Additionally, the patient reported an unspecified infection which may require antibiotic treatment. Results - PSA- 05/22/24---5.12ng/mL - Previous PSA level: 9.0 - Bryson score from biopsy: 3+4=7 - Polaris molecular score: 4.0 -Bladder scan PVR- 10 mL 03/21/24--Solomon is a 68-year-old male who presents today to the office for a follow-up prostate cancer. Prostate biopsy ?08/25/22-- significant for prostatic adenocarcinoma on the left base medial apex of highest Arapahoe score 3+4=7. Polaris molecular score is 4.0. Last seen 12/12/22--discussed neoadjuvant hormonal therapy and radiation. He was seen by Dr. Stacia Gomes Radiation Oncology, and was sent to [facility] [place] however patient does not want surgery; will send him back to Dr. Gomes, continue Casodex until follow-up with radiation oncology, PSA ordered. 12/12/2022? He is followed today for PET results. Certified [place] Islander speaker was present during the visit. He was last seen by me on 09/15/2022 for adenocarcinoma of the prostate. CT Pet scan and polaris was ordered during that time. Insurance denied authorization for PET CT. I discussed results of Polaris molecular score is 4.0. Discussed options to include neoadjuvant hormonal therapy. He wants to consider radiation oncology, vs radical prostatectomy. I will start casodex 50 mg daily, and order firmagon. Referral to radiation oncology, Stacia Gomes and surgical urology oncology Dr. Sauceda. 12/12/2022: Evaluation today?UA? leukocytes: negative; blood: negative. 09/15/22--?Certified carpet yarn winder operator was present during the visit.?The patient was evaluated initially on 06/06/22 for elevated PSA.? PSA on 05/13/2022 was 9.46 ng/mL. He is S/P prostate biopsy on 08/25/22.? I reviewed pathology results with him? I discussed that Bryson score notes that the biopsy samples were in the intermittent range, I discussed sending the biopsy for Gene analysis, Prolaris lab and we will refer him to radiation oncology for further discussion on treatment options.?? I did discuss that treatmenincludes active surveillance which we generally recommend for low-grade cancer and surgical removal was also discussed.? Prostate biopsy results reviewed?08/25/22-- significant for prostatic adenocarcinoma on the left base medial apex of highest Arapahoe score 3+4=7. Prostate volume was estimated to be 65.4 mL.? Evaluation today-- Blood:? 80 Arturo/uL, leukocytes: negative. Plan: Neoadjuvant hormonal therapy, will refer to the radiation oncologist, and surgical consultation for radical prostatectomy. bone scan. [facility] Medical History Lumbar spondylosis Low back pain Osteoarthritis HTN (hypertension) Surgical History H/O prostate biopsy Hx of shoulder surgery Family History Father Diabetes Mother Cancer Social History Household Members: Spouse Housing: House Alcohol intake: current Patient Tobacco Use Status: Former Tobacco user e-Cigarette/Vaping Use: Never Used Second Hand Smoke Exposure: No Current occupational status: retired Sexual orientation: Straight/Heterosexual Gender identity: Male Cognitive needs: No Hearing needs: No Vision needs: No Review of Systems Const All systems reviewed & are unremarkable except as noted in HPI and below Reports no additional complaints Eyes Reports no additional complaints ENT Reports no additional complaints Card Reports no additional complaints Resp Reports no additional complaints GI Reports no additional complaints Reports as per HPI Musc Reports no additional complaints Skin/Breast Reports system reviewed and no additional complaints, except as documented Neuro Reports no additional complaints Psych Reports no additional complaints Endo Reports no additional complaints Omid/Lymph Reports no additional complaints Aller/Immun Reports no additional complaints Assessment & Plan Assessment & Plan (1) Adenocarcinoma of prostate: Code(s): C61 - Malignant neoplasm of prostate Category: Medical Plan Plan - Continue taking Bicalutamide 50 mg daily as prescribed. - We will contact the radiation oncologist to ensure your start with radiation therapy. - Monitor and report any new symptoms or changes in your condition. - Follow up with us if there are issues or concerns regarding the potential infection and antibiotics. Medications: Refilled bicalutamide (Casodex) 50 mg PO DAILY 90 tabs 3RF Patient Instructions: The patient had an opportunity to ask questions regarding treatment plan. The patient expressed understanding and agreement with the above treatment plan. The patient is aware they should contact our office by phone for worsening of their current condition or the appearance of new symptoms. Compliance is encouraged with any medications and followup testing that is ordered. It is a privilege to be allowed the opportunity to participate in the urologic care of your patient. If you have any questions or concerns regarding treatment for the above conditions please do not hesitate to contact me. The office telephone contact is [phone]. This note is constructed in part using voice recognition software. While every effort has been made to ensure accuracy consulting solution manager errors may have been included. Yours sincerely, Veronica Alfredo MD Scribe Plan - Not visible on output: Patient was informed and verbally consented to the use of an ambient scribe for clinic note documentation during this visit. Coding Level of Care Code Est Pt Level 4 (51564) Complex EM visit Add On G2211 Diagnoses Adenocarcinoma of prostate C61
== END 2024-06-17 09:16 | disposition home or self-care (01) ==
LOC: HO.HUSH 08:38
PROVIDERS: PCP Family Medicine; Visit Provider Urology
DX: C61 Malignant neoplasm of prostate (principal)
CPT/HCPCS: 99214; G2211

== ENCOUNTER → 2024-06-17 08:37 | Outpatient (BNVA) | payer OTHER, SELFPAY | PROVIDERS: PCP Family Medicine; Visit Provider Urology | DX: C61 Malignant neoplasm of prostate (principal) | CPT/HCPCS: 99212 ==

== ENCOUNTER 2024-09-02 16:14 | Outpatient (AMB) | payer OTHER, SELFPAY ==
--- NOTE | 2024-09-02 15:55 | MHC.OFFVIS ---
Intake Visit Reasons: 6w/confirming RT Intake Note: Patient is present via telehealth for 6w/confirming RT Urology Med: Tamsulosin, casodex Antibiotic Allergy: None Blood Thinner: None Dowel Pointer Required: Yes Dowel Pointer Language: Person Investigator Name: Shara Barrett Information Interpreted: non-clinical & clinical Accompanied by: Nephew or Niece Allergies No Known Allergies (No Known Allergies*) Allergy (Verified 09/18/24 09:27) HPI Comments Details: 09/02/24-- - The patient is a 68-year-old male presenting with follow-up needs for prostate cancer management. - Evaluated in May for prostate cancer and discussed radiation therapy as a potential treatment. - Communication issues with the radiation oncology team - The patient seeks to proceed with the recommended radiation therapy, expressing frustration over the lack of communication. 06/17/24--Solomon is a 68-year-old male who presents today to the office for a follow-up prostate cancer. The patient is a 68-year-old male presenting with a follow-up for prostate cancer management. Initially diagnosed following a prostate biopsy on 08/25/22, his Wakeman score was determined to be 3+4=7. Further analysis revealed a Polaris molecular score of 4.0. The patient opted for radiation therapy and began treatment with Bicalutamide 50 mg daily. Since initiation, his PSA levels have decreased, indicating a response to therapy. He was seen by Dr. Stacia Gomes Radiation Oncology, and was sent to [facility] [place] however patient does not want surgery; will send him back to Dr. Gomes, continue Casodex until follow-up with radiation oncology. However, there has been a delay in proceeding with radiation therapy due to difficulties in contacting the radiation oncologist. Additionally, the patient reported an unspecified infection which may require antibiotic treatment. Results - PSA- 05/22/24---5.12ng/mL - Previous PSA level: 9.0 - Bryson score from biopsy: 3+4=7 - Polaris molecular score: 4.0 -Bladder scan PVR- 10 mL 03/21/24--Solomon is a 68-year-old male who presents today to the office for a follow-up prostate cancer. Prostate biopsy ?08/25/22-- significant for prostatic adenocarcinoma on the left base medial apex of highest Wakeman score 3+4=7. Polaris molecular score is 4.0. Last seen 12/12/22--discussed neoadjuvant hormonal therapy and radiation. He was seen by Dr. Stacia Gomes Radiation Oncology, and was sent to [facility] [place] however patient does not want surgery; will send him back to Dr. Gomes, continue Casodex until follow-up with radiation oncology, PSA ordered. 12/12/2022? He is followed today for PET results. Certified [place]i speaker was present during the visit. He was last seen by me on 09/15/2022 for adenocarcinoma of the prostate. CT Pet scan and polaris was ordered during that time. Insurance denied authorization for PET CT. I discussed results of Polaris molecular score is 4.0. Discussed options to include neoadjuvant hormonal therapy. He wants to consider radiation oncology, vs radical prostatectomy. I will start casodex 50 mg daily, and order firmagon. Referral to radiation oncology, Stacia Gomes and surgical urology oncology Dr. Sauceda. 12/12/2022: Evaluation today?UA? leukocytes: negative; blood: negative. 09/15/22--?Certified airplane captain was present during the visit.?The patient was evaluated initially on 06/06/22 for elevated PSA.? PSA on 05/13/2022 was 9.46 ng/mL. He is S/P prostate biopsy on 08/25/22.? I reviewed pathology results with him? I discussed that Bryson score notes that the biopsy samples were in the intermittent range, I discussed sending the biopsy for Gene analysis, Prolaris lab and we will refer him to radiation oncology for further discussion on treatment options.?? I did discuss that treatmenincludes active surveillance which we generally recommend for low-grade cancer and surgical removal was also discussed.? Prostate biopsy results reviewed?08/25/22-- significant for prostatic adenocarcinoma on the left base medial apex of highest Wakeman score 3+4=7. Prostate volume was estimated to be 65.4 mL.? Evaluation today-- Blood:? 80 Arturo/uL, leukocytes: negative. Plan: Neoadjuvant hormonal therapy, will refer to the radiation oncologist, and surgical consultation for radical prostatectomy. bone scan. [facility] Medical History Lumbar spondylosis Low back pain Osteoarthritis HTN (hypertension) Surgical History H/O prostate biopsy Hx of shoulder surgery Family History Father Diabetes Mother Cancer Social History Household Members: Spouse Housing: House Alcohol intake: current Patient Tobacco Use Status: Former Tobacco user e-Cigarette/Vaping Use: Never Used Second Hand Smoke Exposure: No Current occupational status: retired Sexual orientation: Straight/Heterosexual Gender identity: Male Cognitive needs: No Hearing needs: No Vision needs: No Review of Systems Const All systems reviewed & are unremarkable except as noted in HPI and below Reports no additional complaints Eyes Reports no additional complaints ENT Reports no additional complaints Card Reports no additional complaints Resp Reports no additional complaints GI Reports no additional complaints Reports as per HPI Musc Reports no additional complaints Skin/Breast Reports system reviewed and no additional complaints, except as documented Neuro Reports no additional complaints Psych Reports no additional complaints Endo Reports no additional complaints Omid/Lymph Reports no additional complaints Aller/Immun Reports no additional complaints Telehealth Telehealth Telehealth Platform: Telephone Location of provider rendering services: practice address Location of patient: address on file Patient Identification confirmed using: Name, : Yes Telehealth method: voice only Patient verbally consented to treatment: Yes Patient verbally consented to billing insurance company: Yes Patient informed of any privacy concerns related to visit: Yes Minutes spent on Phone/Video with Pt.: 13 Assessment & Plan Assessment & Plan (1) Adenocarcinoma of prostate: Code(s): C61 - Malignant neoplasm of prostate Category: Medical Plan Plan FU with radiation oncology Patient Instructions: The patient had an opportunity to ask questions regarding treatment plan. The patient expressed understanding and agreement with the above treatment plan. The patient is aware they should contact our office by phone for worsening of their current condition or the appearance of new symptoms. Compliance is encouraged with any medications and followup testing that is ordered. It is a privilege to be allowed the opportunity to participate in the urologic care of your patient. If you have any questions or concerns regarding treatment for the above conditions please do not hesitate to contact me. The office telephone contact is [phone]. This note is constructed in part using voice recognition software. While every effort has been made to ensure accuracy merchandising execution manager errors may have been included. Yours sincerely, Veronica Alfredo MD Scribe Plan - Not visible on output: Patient was informed and verbally consented to the use of an ambient scribe for clinic note documentation during this visit. Coding Level of Care Code Tele Est Pt Level 3 (41302) Diagnoses Adenocarcinoma of prostate C61
--- OUTSIDE RECORDS SUMMARY | 2024-09-02 17:42 | XMS_ITS ---
Author Name [facility] Organization Unknown Care Team Organization Name Specialty Phone Email Start Date End [facility]
== END 2024-09-02 16:20 | disposition home or self-care (01) ==
LOC: HO.HUSH 16:14
PROVIDERS: PCP Family Medicine; Visit Provider Urology
DX: C61 Malignant neoplasm of prostate (principal)
CPT/HCPCS: 99213

== ENCOUNTER → 2024-09-02 16:14 | Outpatient (BNVA) | payer OTHER, SELFPAY | PROVIDERS: PCP Family Medicine; Visit Provider Urology ==

== ENCOUNTER 2024-09-18 09:18 | Outpatient (AMB) | payer OTHER, SELFPAY ==
--- NOTE | 2024-09-18 09:21 | MHC.OFFVIS ---
Vital Signs 09/18/24 09:31 Height 5 ft 7 in Weight 205 lb 4.006 oz BMI 32.1 BP 132/80 Blood Pressure Location Lt brachial Position Sitting Pulse 53 Pulse Source Pulse Oximeter Pulse Oximetry (%) 98 Oxygen Delivery Method Room Air Intake Visit Reasons: OA Intake Note: Patient presents for OA follow up. Pie Crimping Machine Operator Required: Yes Pie Crimping Machine Operator Language: Knowledge Architect Services: Pie Crimping Machine Operator Present Pie Crimping Machine Operator Name: [id number] Information Interpreted: non-clinical & clinical Allergies No Known Allergies (No Known Allergies*) Allergy (Verified 09/18/24 09:27) Medication List - Last Reconciled 09/18/24 by Rebecca Barrera MD baclofen 10 mg PO Q8H bicalutamide (Casodex) 50 mg PO DAILY bisacodyl (Dulcolax (bisacodyl)) 10 mg (2 x 5 mg) PO ONCE 1 day citalopram 20 mg PO DAILY 30 days lidocaine 5% leave on most painful area for up to 12 hrs topical miscellaneous medical supply Wipes, 3 packs per month, use as directed, 3 packs of wipes montelukast 10 mg PO DAILY 90 days polyethylene glycol 3350 (Miralax) 238 grams PO ONCE 1 day tamsulosin 0.4 mg PO QPM tramadol 50 mg PO TID PRN underpads (Bed Underpads) As directed, 3 per day, disposable HPI Comments Details: Patient is a 68-year-old male with BPH, hypertension, anxiety/depression, prostate cancer and polyarticular osteoarthritis here today for follow up Interval History: Patient last seen 03/19/[address] Coto. At that time he was following up for his polyarticular osteoarthritis on tramadol 3 to 4 times a day. Today, He is about the same No changes to symptoms, continues to have hand pain Rheumatologic History: Polyarticular OA Current Rheumatology Medication(s): Tramadol 50mg qid PFSH Medical History Lumbar spondylosis Low back pain Osteoarthritis HTN (hypertension) Surgical History H/O prostate biopsy Hx of shoulder surgery Family History Father Diabetes Mother Cancer Social History Household Members: Spouse Housing: House Alcohol intake: current Patient Tobacco Use Status: Former Tobacco user e-Cigarette/Vaping Use: Never Used Second Hand Smoke Exposure: No Current occupational status: retired Sexual orientation: Straight/Heterosexual Gender identity: Male Cognitive needs: No Hearing needs: No Vision needs: No Review of Systems Const Details: Review of Systems Constitutional: Denies fever, chills, weight loss ENT: Denies vision changes, eye pain or eye redness, dental caries, dry mouth GI: Denies nausea, vomiting, diarrhea, abdominal pain, change in BM Pulm: Denies SOB, SONG, hemoptysis, wheezing Cards: Denies chest pain, palpitations Skin: Denies Raynaud's, rash, nail changes, photosensitivity, SLIP LASTER: Denies headaches, weakness, paresthesias, recurrent falls MSK: as per HPI All other systems reviewed and are unremarkable except noted above Physical Exam Vital Signs: Last Vital Signs Pulse 53 09/18/24 09:31 BP 132/80 09/18/24 09:31 Pulse Ox 98 09/18/24 09:31 Oxygen Delivery Method Room Air 09/18/24 09:31 BMI result Body Mass Index 32.1 Vital signs reviewed Physical Examination CONSTITUITIONAL Patient alert and cooperative. Well appearing and in no apparent painful distress HEENT Conjunctiva and sclera clear. No lymphadenopathy. CHEST/RESPIRATORY SYSTEM Normal respiratory effort and able to speak in complete sentences. Clear to auscultation bilaterally. No crackles, rales, rhonchi, wheezes heard. CARDIAC SYSTEM Regular rate and rhythm. S1 and S2 heard no murmurs. Radial pulses intact bilaterally MSK Hands Significant/prominent herbeden's and bouchards nodes bilaterally. Not able to make a full fist. TTP of the PIPs. No TTP or synovitis of the MCPs Wrists Right Wrist: Full ROM. 70 degrees of wrist flexion, 80 degrees of wrist extension. No swelling or TTP Left Wrist: Full ROM. 70 degrees of wrist flexion, 80 degrees of wrist extension. No swelling or TTP Elbows Right Elbow: Full ROM. No swelling or TTP. TTP of the right lateral epicondyle Left Elbow: Full ROM. No swelling or TTP. No TTP of the medial and lateral epicondyles Shoulders Right shoulder: Full ROM. No swelling noted. No TTP of the AC joint, subacromial bursa or posterior shoulder Left shoulder: Full ROM. No swelling noted. No TTP of the AC joint, subacromial bursa or posterior shoulder Knees Right knee: Full ROM. No swelling noted. No TTP of the knee joint lie or pes anserine bursa Left knee: Full ROM. No swelling noted. No TTP of the knee joint lie or pes anserine bursa. Ankles Right ankle: Good ankle dorsiflexion and plantar flexion. No swelling. No TTP of the ankle joint Left ankle: Good ankle dorsiflexion and plantar flexion. No swelling. No TTP of the ankle joint Feet Right foot: Negative squeeze test Left foot: Negative squeeze test Tender points? No tenderness to palpation of the bilateral trapezius, supraspinatus, anterior costochondral junctions, bilateral suboccipital muscle insertions SKIN No rashes Results Reviewed Results Reviewed: XR Bilateral Hands 06/2023 FINDINGS: Right hand: Second DIP joint small marginal osteophytes without joint space narrowing indicative of mild osteoarthritis. Remaining bones joints and soft tissues normal. Left hand: Bones joints and soft tissues are normal. No marginal erosions joint space narrowing or abnormal soft tissue calcifications. No change. IMPRESSION: RIGHT HAND: Mild osteoarthritis of the second DIP joint. LEFT HAND: Normal. XR Bilateral Shoulders 06/2023 FINDINGS: Right shoulder: Glenohumeral joint: Normal. Acromial clavicular joint: Mild osteoarthritis manifested by small marginal osteophytes and capsular calcification or chondrocalcinosis. Surrounding bone and soft tissues unremarkable. Left shoulder: Glenohumeral joint: Small calcification adjacent to the superior glenoid may reflect a focal chondrocalcinosis or calcification of the capsule. No joint space narrowing. No marginal osteophytes. Acromioclavicular joint: Small marginal osteophytes indicative of mild osteoarthritis. Surrounding bone and soft tissues unremarkable. IMPRESSION: RIGHT SHOULDER: Mild osteoarthritis of the acromioclavicular joint. Possible chondrocalcinosis LEFT SHOULDER: Mild osteoarthritis of the acromioclavicular joint. Possible chondrocalcinosis Assessment & Plan Assessment & Plan (1) Generalized osteoarthritis: Code(s): M15.9 - Polyosteoarthritis, unspecified Category: Medical Plan: #Polyarticular OA Patient is a 68 y.o. male with polyarticular OA here today for follow up. No change in symptoms. Recommended strecthes, which were printed in marshallese and explained Also recommended topical diclofenac 1% qid Plan - Diclofenac 1% qid - Stretches printed and given - RTC 1 year or sooner Plan I spent 20 minutes reviewing the record and labs, taking a history, examining the patient, discussing the treatment plan, ordering diagnostic work up and documenting in the medical record Medications: Changed From tramadol DO NOT TAKE WITH CITALOPRAM 50 mg PO TID PRN 90 tabs 3RF pain M54.5 - Low back pain To tramadol DO NOT TAKE WITH CITALOPRAM 50 mg PO QID 120 tabs 5RF pain 90 days M54.5 - Low back pain Discontinued citalopram Discontinued Reason: Patient no longer taking 20 mg PO DAILY 30 days 30 tabs 2RF Coding Level of Care Code Est Pt Level 3 (31898) Diagnoses Generalized osteoarthritis M15.9
[2024-09-18 09:31] VITALS: BP 132/80; PULSE 53; O2SAT 98; BMI 32.1
== END 2024-09-18 09:56 | disposition home or self-care (01) ==
LOC: HO.RHE 09:19
PROVIDERS: PCP Family Medicine; Visit Provider Student in an Organized Health Care Education/Training Program
DX: M15.9 Polyosteoarthritis, unspecified (principal)
CPT/HCPCS: 99213

== ENCOUNTER → 2024-09-18 09:18 | Outpatient (BNVA) | payer OTHER, SELFPAY | PROVIDERS: PCP Family Medicine; Visit Provider Student in an Organized Health Care Education/Training Program | DX: M19.041 Primary osteoarthritis, right hand (principal) | CPT/HCPCS: 99212 ==

== ENCOUNTER 2025-01-27 11:25 | Outpatient (AMB) | payer OTHER, SELFPAY ==
--- NOTE | 2025-01-27 11:25 | A.OFFVIS_ITS ---
Intake Visit Reasons: 4m f/u Intake Note: Patient is present via telehealth for 4m follow up Urology Med: Tamsulosin Antibiotic Allergy: None Blood Thinner: None Main Line Assembler Required: Yes Main Line Assembler Language: Plasterer Spray Gun Name: Balta Guzman Information Interpreted: non-clinical & clinical Allergies No Known Allergies (No Known Allergies*) Allergy (Verified 01/27/25 11:25) HPI Comments Details: 01/27/2025-- History of Present Illness The patient is a 69-year-old male presenting with prostate cancer. The prostate cancer was diagnosed with a Silverton score of 3 plus 4 equals 7. He has been referred to radiation oncology for further management. The patient states he is awaiting an MRI to be done and is awaiting a medication necessary to complete the MRI, which he has not received. I discussed with the patient that our office will reach out to radiation oncology to try to facilitate communication between them in the patient but he should also give the radiation oncology is office a call Plan Prostate Cancer - The patient is referred to radiation oncology for management. -FU after radiation therapy 09/02/24-- - The patient is a 68-year-old male presenting with follow-up needs for prostate cancer management. - Evaluated in May for prostate cancer and discussed radiation therapy as a potential treatment. - Communication issues with the radiation oncology team - The patient seeks to proceed with the recommended radiation therapy, expressing frustration over the lack of communication. 06/17/24--Solomon is a 68-year-old male who presents today to the office for a follow-up prostate cancer. The patient is a 68-year-old male presenting with a follow-up for prostate cancer management. Initially diagnosed following a prostate biopsy on 08/25/22, his Silverton score was determined to be 3+4=7. Further analysis revealed a Polaris molecular score of 4.0. The patient opted for radiation therapy and began treatment with Bicalutamide 50 mg daily. Since initiation, his PSA levels have decreased, indicating a response to therapy. He was seen by Dr. Stacia Gomes Radiation Oncology, and was sent to [facility] [place] however patient does not want surgery; will send him back to Dr. Gomes, continue Casodex until follow-up with radiation oncology. However, there has been a delay in proceeding with radiation therapy due to difficulties in contacting the radiation oncologist. Additionally, the patient reported an unspecified infection which may require antibiotic treatment. Results - PSA- 05/22/24---5.12ng/mL - Previous PSA level: 9.0 - Bryson score from biopsy: 3+4=7 - Polaris molecular score: 4.0 -Bladder scan PVR- 10 mL 03/21/24--Solomon is a 68-year-old male who presents today to the office for a follow-up prostate cancer. Prostate biopsy ?08/25/22-- significant for prostatic adenocarcinoma on the left base medial apex of highest Bryson score 3+4=7. Polaris molecular score is 4.0. Last seen 12/12/22--discussed neoadjuvant hormonal therapy and radiation. He was seen by Dr. Stacia Gomes Radiation Oncology, and was sent to [facility] [place] however patient does not want surgery; will send him back to Dr. Gomes, continue Casodex until follow-up with radiation oncology, PSA ordered. 12/12/2022?He is followed today for PET results. Certified German speaker was present during the visit. He was last seen by me on 09/15/2022 for adenocarcinoma of the prostate. CT Pet scan and polaris was ordered during that time. Insurance denied authorization for PET CT. I discussed results of Polaris molecular score is 4.0. Discussed options to include neoadjuvant hormonal therapy. He wants to consider radiation oncology, vs radical prostatectomy. I will start casodex 50 mg daily, and order firmagon. Referral to radiation oncology, Stacia Gomes and surgical urology oncology Dr. Sauceda. 12/12/2022: Evaluation today?UA? leukocytes: negative; blood: negative. 09/15/22--?Certified office assistance was present during the visit.?The patient was evaluated initially on 06/06/22 for elevated PSA.? PSA on 05/13/2022 was 9.46 ng/mL. He is S/P prostate biopsy on 08/25/22.? I reviewed pathology results with him? I discussed that Silverton score notes that the biopsy samples were in the intermittent range, I discussed sending the biopsy for Gene analysis, Prolaris lab and we will refer him to radiation oncology for further discussion on treatment options.?? I did discuss that treatmenincludes active surveillance which we generally recommend for low-grade cancer and surgical removal was also discussed.? Prostate biopsy results reviewed?08/25/22-- significant for prostatic adenocarcinoma on the left base medial apex of highest Bryson score 3+4=7. Prostate volume was estimated to be 65.4 mL.? Evaluation today-- Blood:? 80 Arturo/uL, leukocytes: negative. Plan: Neoadjuvant hormonal therapy, will refer to the radiation oncologist, and surgical consultation for radical prostatectomy. bone scan. COUNTS INCLUDE 234 BEDS AT THE [facility] Medical History Lumbar spondylosis Low back pain Osteoarthritis HTN (hypertension) Surgical History H/O prostate biopsy Hx of shoulder surgery Family History Father Diabetes Mother Cancer Social History Household Members: Spouse Housing: House Alcohol intake: current Patient Tobacco Use Status: Former Tobacco user e-Cigarette/Vaping Use: Never Used Second Hand Smoke Exposure: No Current occupational status: retired Sexual orientation: Straight/Heterosexual Gender identity: Male Cognitive needs: No Hearing needs: No Vision needs: No Review of Systems Const All systems reviewed & are unremarkable except as noted in HPI and below Reports no additional complaints Eyes Reports no additional complaints ENT Reports no additional complaints Card Reports no additional complaints Resp Reports no additional complaints GI Reports no additional complaints Reports as per HPI Musc Reports no additional complaints Skin/Breast Reports system reviewed and no additional complaints, except as documented Neuro Reports no additional complaints Psych Reports no additional complaints Endo Reports no additional complaints Omid/Lymph Reports no additional complaints Aller/Immun Reports no additional complaints Telehealth Telehealth Telehealth Platform: Telephone Location of provider rendering services: practice address Location of patient: address on file Patient Identification confirmed using: Name, : Yes Telehealth method: voice only Patient verbally consented to treatment: Yes Patient verbally consented to billing insurance company: Yes Patient informed of any privacy concerns related to visit: Yes Minutes spent on Phone/Video with Pt.: 13 Results Reviewed Results Reviewed: Collected: 08/25/22 Received: 08/25/22 Diagnosis Prostate, needle core biopsies: A. Left base lateral: Prostatic adenocarcinoma, Bryson score 3+4=7 (grade group 2) involving 5% of the tissue. B. Left base medial: Prostatic adenocarcinoma, Silverton score 3+4=7 (grade group 2) involving 5% of the tissue. C. Left mid lateral: Prostatic adenocarcinoma, Silverton score 3+4=7 (grade group 2) involving 5% of the tissue. D. Left mid medial: Prostatic adenocarcinoma, Silverton score 3+3=6 (grade group 1) involving 5% of the tissue. E. Left apex lateral: Prostatic adenocarcinoma, Bryson score 3+4=7 (grade group 2) involving 60% of the tissue. F. Left apex medial: Prostatic adenocarcinoma, Silverton score 3+3=6 (grade group 1) involving 30% of the tissue. G. Right base lateral: Benign prostatic tissue; no carcinoma seen. H. Right base medial: Benign prostatic tissue; no carcinoma seen. I. Right mid lateral: Benign prostatic tissue; no carcinoma seen. J. Right mid medial: Benign prostatic tissue; no carcinoma seen. K. Right apex lateral: Benign prostatic tissue; no carcinoma seen. L. Right apex medial: Benign prostatic tissue; no carcinoma seen. Data synopsis - Prostate needle biopsy Histologic type: Adenocarcinoma, acinar type Histologic grade: Bryson score: 3+4=7 (left base lateral and medial; left mid lateral; left apex lateral) 3+3=6 (left mid medial, left apex medial) % of pattern 4: Approximately 5% of the tumor % of pattern 5: 0% Grade group: 2 and 1 Tumor quantitation: Number cores positive: 6 Total number of cores: 12 % of tissue involved: 10% of all tissue examined Periprostatic fat inv.: Not identified Seminal vesicle inv.: Not identified Perineural inv.: Not identified LVI: Not identified Clinical History Elevated PSA Microscopic Description A-L. Microscopic sections reviewed. Material Received A: Left base lateral B: Left base medial C: Left mid lateral D: Left mid medial E: Left apex lateral F: Left apex medial G: Right base lateral H: Right base medial I: Right mid lateral J: Right mid medial K: Right apex lateral L: Right apex medial Gross Description A. Received in formalin is 1 hummel 20 mm in length needle core, totally submitted in cassette A1. B. Received in formalin is 1 hummel 15 mm in aggregate length fragmented needle core, totally submitted in cassette B1. C. Received in formalin is 1 hummel 16 mm in length needle core, totally submitted in cassette C1. D. Received in formalin is 1 hummel 15 mm in aggregate length fragmented needle core, totally submitted in cassette D1. E. Received in formalin is 1 hummel 22 mm in length needle core, totally submitted in cassette E1. F. Received in formalin is 1 hummel 12 mm in length needle core, totally submitted in cassette F1. G. Received in formalin is 1 hummel 10 mm in length needle core, totally submitted in cassette G1. H. Received in formalin is 1 hummel 10 mm in length needle core, totally submitted in cassette H1. I. Received in formalin is 1 hummel 15 mm in length needle core, totally submitted in cassette I1. J. Received in formalin is 1 hummel 20 mm in length needle core, totally submitted in cassette J1. K. Received in formalin is 1 hummel 13 mm in length needle core, totally submitted in cassette K1. L. Received in formalin is 1 hummel 16 mm in aggregate length fragmented needle core, totally submitted in cassette L1. Assessment & Plan Assessment & Plan (1) Adenocarcinoma of prostate: Code(s): C61 - Malignant neoplasm of prostate Category: Medical Plan Plan Prostate Cancer - The patient is referred to radiation oncology for management. -FU after radiation therapy Scribe Plan - Not visible on output: Patient was informed and verbally consented to the use of an ambient scribe for clinic note documentation during this visit. Coding Level of Care Code Tele Est Pt Level 3 (60158) Diagnoses Adenocarcinoma of prostate C61
--- OUTSIDE RECORDS SUMMARY | 2025-01-27 14:33 | XMS_ITS | Clinical Summary ---
Author Organization [facility] Address [address] [place] [address] Care Team Providers Care Coremaker Name Role Phone Pcp, No Primary Care Provider Unavailabl e Social History Tobacco Use Types Packs/Day Years Used Date Smoking Tobacco: Never Assessed Sex and Gender Information Value Date Recorded Sex Assigned at Not on file Legal Sex Male 6:58 PM EST Gender Identity Not on file Sexual Orientation Not on file Plan of Treatment Health Maintenance Due Date Last Done Comments Advance Care Planning 1955 Hepatitis C Virus Screening 1955 DTaP/Tdap/Td Vaccines (1 - Tdap) 12/14/1975 Pneumococcal Vaccines 50+ (1 of 1 - PCV) 2006 Zoster (Shingles) Vaccine (1 of 2) 2006 COVID-19 Vaccine (1 - 2023-2 5 season) 2024 RSV Vaccine 50 years and old er and Patients (1 - 1-dose 75+ series) 12/14/2031 Hepatitis B Vaccines Aged Out No long er eligible based on patient's age to complete this topic Care Teams Coremaker Relationship Specialty Start Date End Date Pcp, No PCP - General General Medicine 02/02/23
--- OUTSIDE RECORDS SUMMARY | 2025-01-27 14:33 | XMS_ITS | Encounter Summary ---
Author Organization [facility] Address [address] [place] [address] Care Team Providers Care Customs Broker Name Role Phone Pcp, No Primary Care Provider Unavailabl e Reason for Visit * Reason Comments Appointment Encounter Details Date Type Department Care Team (Late st Contact Info) Description 01/30/2023 Telephone [facility] [address] [place] [address] Rene Sauceda MD [address] [phone] Appointment Social History Tobacco Use Types Packs/Day [...] schedule consult visit with Dr. Sauceda no belt picker, lvm. Please transfer call to me. documented in this encounter Plan of Treatment Not on file documented as of this encounter Visit Diagnoses Not on filedocumented in this encounter Care Teams Customs Broker Relationship Specialty Start Date End Date Pcp, No PCP - General General Medicine 02/02/23 documented as of this encounter
--- OUTSIDE RECORDS SUMMARY | 2025-01-27 14:33 | XMS_ITS | Patient Health Record ---
Author Organization [facility] Address [address] [place] [address] Care Team Providers Care Geodetic Engineer Name Role Phone Ale Nice M.D. Primary Care Provider Un available Brooks Bynum Jr Unavailable [phone] Reason For Referral No Information Medications Medication SIG (Take, Route, Frequency, Duration) Notes Start Date End Date Status Terazosin HCl 2 MG 1 capsule Orally Onc e a day Active Docusate Sodium 100 MG 1 tablet as neede d Orally Once a day Active Colyte with Flavor Packs 240 GM As directed Orally Over the specified time.; Duration: 1 day(s) 01/15/2014 Active Naproxen 500 MG 1 tablet as needed O rally every 12 hrs Active Problems Problem Type SNOMED Code ICD Code Onset Dates Problem Status W/U Status Risk Notes Problem Hemorrhoids (61765996) Hemorrhoids (455.6) Active confirmed Problem Colon cancer screening (572848379) Colon cancer screening (V76.51) Active confirmed Plan Of Treatment Future Test Test Name Order Date COLONOSCOPY 01/15/2014 Insurance Providers Payer Name Payer Address Payer Phone Subscriber Number Group Number Insured Name Patient Relationship to Insured Coverage Start Date Coverage End Date [facility] [address] [place] [phone] [id number] [place] Self - patient is the insured Medicare of [facility] [address] [place] [address] [id number] [place] ESP[place]A Self - patient is the insured MEDICAID OF [facility] [address] [place] [address] [phone] [id number] JESÚS, [place] Self - patient is the insured Medical (General) History Medical History History ICD Code BPH degenerative joint disease hemorrhoids Surgical History Surgery Date(Month/Year) shoulder surgery-left
== END 2025-01-27 14:59 | disposition home or self-care (01) ==
LOC: HO.HUSH 11:25
PROVIDERS: PCP Family Medicine; Visit Provider Urology
DX: C61 Malignant neoplasm of prostate (principal)
CPT/HCPCS: 99213